=== PATIENT | female | born 1965 | race Two or more races ===

== ENCOUNTER → 2020-07-13 11:35 | Outpatient (BNVA) | payer OTHER, SELFPAY | PROVIDERS: PCP Internal Medicine; Visit Provider Nurse Practitioner | DX: Z13.89 Encounter for screening for other disorder (principal) | CPT/HCPCS: 99212 ==

== ENCOUNTER 2020-08-04 08:25 | Outpatient (REF) | payer OTHER, SELFPAY ==
[2020-08-04 09:08] LABS: FIT Int Ctl YES; FIT1 NEGATIVE (NEGATIVE); FIT2 NEGATIVE (NEGATIVE)
== END 2020-08-04 08:26 | disposition home or self-care (01) ==
LOC: HO.LNP 08:25
PROVIDERS: Visit Provider Nurse Practitioner
DX: Z12.11 Encounter for screening for malignant neoplasm of colon (principal)
CPT/HCPCS: 82274

== ENCOUNTER → 2020-10-22 09:57 | Outpatient (BNVA) | payer OTHER, SELFPAY | PROVIDERS: PCP Internal Medicine; Visit Provider Internal Medicine | DX: I10 Essential (primary) hypertension (principal) | CPT/HCPCS: 93005; 99212 ==

== ENCOUNTER 2020-12-08 21:35 | Emergency (ER) | payer OTHER, SELFPAY ==
--- NOTE | ~2020-12-08 | US_ITS ---
EXAMINATION: US VENOUS ULTRASOUND WITH DOPPLER LOWER EXTREMITY, LEFT CLINICAL INFORMATION: Swelling erythema pain COMPARISON: Prior venous ultrasound September 2018 TECHNIQUE: Ultrasound of the deep veins is performed from the hip to the calf with compression sonography and color and pulse Doppler assessment. Spectral analysis with color-flow imaging is performed. FINDINGS: There is normal venous compression and respiratory variation and augmented flow. The visualized common femoral vein, superficial femoral vein, profunda femoral vein, popliteal vein, and the trifurcation region shows no evidence of deep venous thrombosis. There is no significant popliteal fossa cyst. If the patient's symptoms persist, followup ultrasound in 5 days 7 days might be of value to exclude proximal propagation from a non-visualized calf vein. US/US venous duplex LE IMPRESSION: No DVT demonstrated in the left lower extremity.
--- NOTE | ~2020-12-08 | XR_ITS ---
EXAMINATION: XR ANKLE, LEFT CLINICAL INFORMATION: Swelling pain COMPARISON: None TECHNIQUE: AP, lateral, and mortise views of the left ankle. FINDINGS: There is mild generalized soft tissue prominence compatible with swelling about the ankle. I do not see a fracture or degenerative joint disease. Calcaneal spurs noted. XR/XR ankle LT min 3V IMPRESSION: Possible soft tissue swelling versus normal variation. No acute bone or joint abnormality.
[2020-12-08 21:38] VITALS: BP 130/79; PULSE 70; RESP 18; TEMP 37.1; O2SAT 99; BMI 27.8
--- NOTE | 2020-12-08 22:16 | ED.LOWEXIN ---
HPI - Extremity Injury (Lower) General Chief Complaint: Extremity Injury, Lower Stated Complaint: vein swelling Time Seen by Provider: 12/09/20 00:23 Source: patient Mode of arrival: ambulatory Limitations: language barrier History of Present Illness HPI Narrative: 55-year-old female past medical history of B12 deficiency, hypertension, and seasonal allergies presents with 2 days of left lower extremity pain, swelling and redness. The pain started 2 days ago and then the swelling started earlier today, making it difficult for her to ambulate. She states the pain started in the mid calf, at the site where she had a prior venous surgery. She does not take any hormones, does not smoke, has never been diagnosed with cancer, and does not have any recent flights or prolonged episodes of bed rest. She does not report any fevers, chills, chest pain or pressure, palpitations, shortness of breath, shortness of breath on exertion, chest pain on inspiration, abdominal pain, abdominal distention, dysuria, hematuria, or any other concerning symptoms. She denies trauma, falls, or any other source of injury. Onset (ago): day(s) (To) Type of Injury: unknown Severity: moderate Severity scale (1-10): 6 Relieving factors: nothing Exacerbating factors: weight bearing, movement and palpation Associated symptoms: swelling and able to partially bear weight Related Data Home Medications Medication Instructions Recorded Confirmed cetirizine 10 mg tablet 10 mg PO DAILY 07/29/20 11/26/20 lisinopril 10 1 tab PO DAILY 10/22/20 11/26/20 mg-hydrochlorothiazide 12.5 mg tablet Previous Rx's Medication Instructions Recorded cyanocobalamin (vitamin B-12) 1,000 mcg PO DAILY #30 tab 06/03/20 1,000 mcg tablet amlodipine 5 mg tablet 5 mg PO DAILY #90 tab 09/02/20 doxycycline monohydrate 100 mg PO BID 10 Days #20 tab 12/09/20 Allergies Allergy/AdvReac Type Severity Reaction Status Date / Time No Known Allergies Allergy Verified 12/08/20 21:38 Review of Systems Review of Systems: Constitutional: No Fever, No Chills ENT/Mouth: No Ear Pain, No Hoarseness, No sore throat Eyes: No Eye Pain, No Swelling, No Redness, No Foreign Body Cardiovascular: No Chest Pain, No SOB Respiratory: No Cough, No Dyspnea Gastrointestinal: No Nausea, No Vomiting, No Diarrhea, No abdominal Pain Genitourinary: No Dysuria, No Hematuria Musculoskeletal: positive left ankle and calf pain swelling and erythema, No Myalgias Skin: No Skin lacerations, No rash Neuro: No Weakness, No Numbness, No Paresthesias, No Loss of Consciousness, No Dizziness, No Headache Psych: No Anxiety/Panic, No Depression Heme/Lymph: no easy bruising, no Lymphadenopathy Endocrine: No Polyuria, No Polydipsia Yes all other systems are reviewed and are negative [facility] Past Medical History Attestation statement: The following information was validated with the patient. Source: old records reviewed Medical History B12 deficiency Essential hypertension Surgical History History of section History of cholecystectomy History of lipoma History of shoulder surgery Family History Family History Father Lung cancer Mother Stroke Maternal Grandmother Stroke CVD (cardiovascular disease) Maternal Grandfather CVD (cardiovascular disease) Stroke Maternal Uncle Myocardial infarction Social History Social History Alcohol intake: current Alcohol intake frequency: does not drink Smoking Status: Never smoker Advance Directives: No Advance Directives Information Provided: No Patient : No Physical Exam Vital Signs: Vital Signs: Last Vital Signs Temp 98.7 F 12/08/20 21:38 Pulse 70 12/08/20 21:38 Resp 18 12/08/20 21:38 BP 130/79 12/08/20 21:38 Pulse Ox 99 12/08/20 21:38 Body Mass Index 27.8 Appearance: Alert. Oriented X3. No acute distress. Eyes: Pupils equal, round and reactive to light. ENT: Pharynx normal. Neck: Normal inspection. Neck supple. CVS: Normal heart rate and rhythm. Pulses normal. Respiratory: No respiratory distress. Breath sounds normal. Abdomen: Soft and nontender. Skin: Skin warm and dry. Normal skin color. Normal skin turgor. Extremities: Left lateral malleolar erythema and swelling, calf pain to minimal palpation with warmth and erythema. Full range of motion to the ankle, able to flex extend internal and externally rotate. Ambulatory. Neuro: No motor deficit. No sensory deficit. Course Course Course Narrative: 55-year-old female presents with 2 days of lower extremity pain and swelling. Pain started in the mid calf and then radiated down to her lateral ankle. Will rule out DVT with duplex and order an x-ray with CBC, Chem 7 and PT INR. Negative for DVT, ankle x-rays are negative for acute findings or fracture. Plan of care is to treat for cellulitis with doxycycline. Patient verbalized understanding of and agrees to plan care discharge home. Google translate utilized for discharge instructions, medicinal chemist utilized for all correspondence. MDM - Extremity Injury (Lower) MDM Narrative Medical decision making narrative: DVT, cellulitis Differential Diagnosis Differential diagnosis: Likely ankle sprain and strain Medical Records Attestation: I reviewed the patient's medical records. Lab Data Attestation: I reviewed the patient's lab results. Result diagrams: 12/08/20 22:24 12/08/20 22:24 Labs: Lab Results 12/08/20 12/08/20 12/08/20 Range/Units 22:24 22:24 22:24 WBC 8.1 (4.8-10.8) X10*3/uL RBC 4.46 (4.20-5.50) X10*6/uL Hgb 13.1 (12.0-16.0) g/dl Hct 39.9 (37-47) % MCV 89.5 (80-98) fL MCH 29.4 (27.0-33.0) pg MCHC 32.8 (31.0-35.0) g/dl RDW 13.2 (11.0-16.0) % Plt Count 355 (160-400) X10*3/uL MPV 10.9 (9.4-12.3) fL Immature Gran % (Auto) 0.4 (0.0-0.4) % Neut % (Auto) 48.8 (45-73) % Lymph % (Auto) 33.3 (20-40) % [place] % (Auto) 14.2 H (2-11) % Eos % (Auto) 2.3 (0-4) % Baso % (Auto) 1.0 (0-2) % Lymph # (Auto) 2.7 (1.2-4.9) X10*3/uL [place] # (Auto) 1.2 (0.1-1.2) X10*3/uL Eos # (Auto) 0.2 (0.0-0.4) X10*3/uL Baso # (Auto) 0.1 (0.0-0.2) X10*3/uL Abs Immat Gran (auto) 0.03 (0.00-0.03) X10*3/uL Absolute Neuts (auto) 4.0 (2.0-8.3) X10*3/uL Absolute Nucleated RBC 0.000 (0.0-0.012) X10*3/uL Nucleated RBC % (auto) 0.0 (0.0-0.2) /100WBC PT 13.3 H (10.8-13.0) SEC INR 1.1 (0.9-1.1) APTT 40.8 H (24.1-38.0) SEC Sodium 141 (135-145) mmol/L Potassium 3.7 (3.3-5.1) mmol/L Chloride 105 (96-108) mmol/L Carbon Dioxide 28 (22-29) mmol/L Anion Gap 12 (12-20) BUN 16 (9-16) mg/dL Creatinine 1.02 (0.5-1.4) mg/dL Estim Creat Clear Calc 53.1 Estimated GFR 56 Random Glucose 71 (60-115) mg/dL Calcium 9.5 (8.4-10.2) mg/dL Imaging Data Ankle x-ray: Attestation: I personally reviewed and interpreted this imaging study as follows: Radiologist's impression: EXAMINATION: XR ANKLE, LEFT CLINICAL INFORMATION: Swelling pain COMPARISON: None TECHNIQUE: AP, lateral, and mortise views of the left ankle. FINDINGS: There is mild generalized soft tissue prominence compatible with swelling about the ankle. I do not see a fracture or degenerative joint disease. Calcaneal spurs noted. XR/XR ankle LT min 3V IMPRESSION: Possible soft tissue swelling versus normal variation. No acute bone or joint abnormality. Lower extremity venous duplex: Attestation: I personally reviewed and interpreted this imaging study as follows: Radiologist's impression: EXAMINATION: US VENOUS ULTRASOUND WITH DOPPLER LOWER EXTREMITY, LEFT CLINICAL INFORMATION: Swelling erythema pain COMPARISON: Prior venous ultrasound September 2018 TECHNIQUE: Ultrasound of the deep veins is performed from the hip to the calf with compression sonography and color and pulse Doppler assessment. Spectral analysis with color-flow imaging is performed. FINDINGS: There is normal venous compression and respiratory variation and augmented flow. The visualized common femoral vein, superficial femoral vein, profunda femoral vein, popliteal vein, and the trifurcation region shows no evidence of deep venous thrombosis. There is no significant popliteal fossa cyst. If the patient's symptoms persist, followup ultrasound in 5 days 7 days might be of value to exclude proximal propagation from a non-visualized calf vein. US/US venous duplex LE LT IMPRESSION: No DVT demonstrated in the left lower extremity. Discharge Plan Discharge Clinical Impression: Cellulitis Qualifiers: Site of cellulitis: extremity Site of cellulitis of extremity: lower extremity Laterality: left Qualified Code(s): L03.116 - Cellulitis of left lower limb Patient Disposition: Home, Self-Care Instructions: Cellulitis (ED) Additional Instructions: Te evaluaron para el dolor e hinchaz?n del tobillo ricardo y las extremidades inferiores. El estudio de TVP es negativo, las radiograf?as son negativas para las fracturas. Te estamos tratando por celulitis. Por favor, tome doxiciclina dos veces al d?a lara los pr?ximos 10 d?as. Utilice Tylenol Motrin seg?n sea necesario para el control del dolor. Por favor, svetlana un seguimiento con el proveedor de atenci?n primaria esta semana. Alma por elegir sol departamento de emergencias para ramirez evaluaci?n. Por favor, svetlana un seguimiento con el m?dico de atenci?n primaria seg?n sea necesario. Regrese al servicio de emergencias para cualquier s?ntoma nuevo, preocupante o empeorante. You were evaluated for left ankle and lower extremity pain and swelling. DVT study is negative, x-rays are negative for fractures. We are treating you for cellulitis. Please take doxycycline twice a day for the next 10 days. Use Tylenol Motrin as needed for pain management. Please follow-up with the primary care provider this week. Thank you for choosing this emergency department for evaluation. Please follow-up with primary care physician as needed. Return to the emergency department for any new, concerning, or worsening symptoms. Prescriptions: New doxycycline monohydrate 100 mg tablet 100 mg PO BID 10 Days Qty: 20 RF: 0 No Action cyanocobalamin (vitamin B-12) 1,000 mcg tablet 1,000 mcg PO DAILY Qty: 30 RF: 6 amlodipine 5 mg tablet 5 mg PO DAILY Qty: 90 RF: 0 cetirizine 10 mg tablet 10 mg PO DAILY RF: 0 lisinopril-hydrochlorothiazide 10-12.5 mg tablet 1 tab PO DAILY RF: 0 Stand Alone Forms: Work/School Release Interventions: ED Discharge Assessment Last Done: 12/09/20 00:44 Discharge Date/Time: 12/09/20 00:45
[2020-12-08 22:29] LABS: MANUAL DIFF FLAG NO
[2020-12-08 22:30] LABS: Basophils Absolute Auto 0.1 X10*3/uL (0.0-0.2); Eosinophils Absolute Auto 0.2 X10*3/uL (0.0-0.4); Eosinophils Percent Auto 2.3 % (0-4); Hematocrit 39.9 % (37-47); Hemoglobin 13.1 g/dl (12.0-16.0); Imm Gran Abs Auto 0.03 X10*3/uL (0.00-0.03); Imm Gran Pct Auto 0.4 % (0.0-0.4); Lymphocytes Absolute Auto 2.7 X10*3/uL (1.2-4.9); Lymphocytes Percent Auto 33.3 % (20-40); Mean Corpuscular HGB Conc 32.8 g/dl (31.0-35.0); Mean Corpuscular Hemoglobin 29.4 pg (27.0-33.0); Mean Corpuscular Volume 89.5 fL (80-98); Mean Platelet Volume 10.9 fL (9.4-12.3); Monocytes Absolute Auto 1.2 X10*3/uL (0.1-1.2); Monocytes Percent Auto 14.2 % (2-11); Neutrophils Percent Auto 48.8 % (45-73); Platelet Count 355 X10*3/uL (160-400); Red Blood Count 4.46 X10*6/uL (4.20-5.50); Red Cell Distribution Width 13.2 % (11.0-16.0); White Blood Count 8.1 X10*3/uL (4.8-10.8)
[2020-12-08 22:37] LABS: INTERNATIONAL NORM RATIO 1.1 (0.9-1.1); Prothrombin Time 13.3 SEC (10.8-13.0)
[2020-12-08 22:41] LABS: Partial Thromboplastin Time 40.8 SEC (24.1-38.0)
[2020-12-08 23:02] LABS: Anion Gap 12 (12-20); Blood Urea Nitrogen 16 mg/dL (9-16); Calcium 9.5 mg/dL (8.4-10.2); Carbon Dioxide 28 mmol/L (22-29); Chloride 105 mmol/L (96-108); Creatinine Clr Calc Pharmacy 53.1; Estimated Glomerular Filt Rate 56; Glucose Random 71 mg/dL (60-115); Potassium 3.7 mmol/L (3.3-5.1); Sodium 141 mmol/L (135-145)
[2020-12-09] MEDS: Ibuprofen 600 MG TABLET PO (00:40)
== END 2020-12-09 00:45 | disposition home or self-care (01) ==
PROVIDERS: Nurse Practitioner Family; Emergency Provider Emergency Medicine; PCP Internal Medicine
DX: L03.116 Cellulitis of left lower limb (principal); R22.42 Localized swelling, mass and lump, left lower limb; M79.662 Pain in left lower leg; I10 Essential (primary) hypertension; E53.8 Deficiency of other specified B group vitamins; Z79.899 Other long term (current) drug therapy
CPT/HCPCS: 36415; 73610; 80048; 85025; 85610; 85730; 93971; 99283; 99284

== ENCOUNTER 2021-06-23 08:52 | Emergency (ER) | payer OTHER, SELFPAY ==
[2021-06-23 09:28] VITALS: BP 148/84; BP 161/88; PULSE 84; PULSE 86; RESP 18; TEMP 36.7; O2SAT 100; BMI 25.7
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
[2021-06-23] MEDS: oxyCODONE HCl Immed Release 5 MG TABLET PO (09:39)
[2021-06-23] MEDS: Ibuprofen 800 MG TABLET PO (09:39)
[2021-06-23] MEDS: Silver Sulfadiazine 1 % Cream 20 GM TUBE 1 APPL TOPICAL (09:39)
== END 2021-06-23 10:13 | disposition home or self-care (01) ==
PROVIDERS: Emergency Provider Emergency Medicine; PCP Internal Medicine
DX: T22.112A Burn of first degree of left forearm, initial encounter (principal); T22.212A Burn of second degree of left forearm, initial encounter; T22.312A Burn of third degree of left forearm, initial encounter; T31.0 Burns involving less than 10% of body surface; M79.632 Pain in left forearm; X10.2XXA Contact with fats and cooking oils, initial encounter; Y93.G3 Activity, cooking and baking; Y92.009 Unspecified place in unspecified non-institutional (private) residence as the place of occurrence of the external cause; Y99.9 Unspecified external cause status; Z79.899 Other long term (current) drug therapy
CPT/HCPCS: 16020; 99283

== ENCOUNTER 2021-07-01 07:59 | Outpatient (RCR) | payer OTHER, SELFPAY | END 2021-07-28 12:29 | disposition home or self-care (01) | LOC: HO.WCC 07:59 | PROVIDERS: PCP Internal Medicine; Visit Provider Surgery | DX: T23.262D Burn of second degree of back of left hand, subsequent encounter (principal); T22.212D Burn of second degree of left forearm, subsequent encounter; T31.0 Burns involving less than 10% of body surface; X10.2XXD Contact with fats and cooking oils, subsequent encounter; I10 Essential (primary) hypertension | CPT/HCPCS: 99212; 99213 ==

== ENCOUNTER → 2021-07-14 12:01 | Outpatient (BNVA) | payer OTHER, SELFPAY | PROVIDERS: Visit Provider Orthopaedic Surgery | DX: T23.072A Burn of unspecified degree of left wrist, initial encounter (principal); T23.002A Burn of unspecified degree of left hand, unspecified site, initial encounter | CPT/HCPCS: 99202 ==

== ENCOUNTER → 2021-09-21 09:57 | Outpatient (BNVA) | payer OTHER, SELFPAY | PROVIDERS: Visit Provider Orthopaedic Surgery | DX: T23.072D Burn of unspecified degree of left wrist, subsequent encounter (principal); M25.642 Stiffness of left hand, not elsewhere classified; T78.40XA Allergy, unspecified, initial encounter | CPT/HCPCS: 99212 ==

== ENCOUNTER 2021-10-25 10:01 | Outpatient (REF) | payer OTHER, SELFPAY ==
[2021-10-25 10:20] LABS: MANUAL DIFF FLAG NO
[2021-10-25 10:40] LABS: Basophils Absolute Auto 0.1 X10*3/uL (0.0-0.2); Basophils Percent Auto 0.9 % (0-2); Eosinophils Absolute Auto 0.2 X10*3/uL (0.0-0.4); Eosinophils Percent Auto 3.2 % (0-4); Hematocrit 42.6 % (37.0-47.0); Hemoglobin 13.5 g/dl (12.0-16.0); Imm Gran Abs Auto 0.03 X10*3/uL (0.00-0.03); Imm Gran Pct Auto 0.5 % (0.0-0.4); Lymphocytes Absolute Auto 2.3 X10*3/uL (1.2-4.9); Lymphocytes Percent Auto 35.3 % (20-40); Mean Corpuscular HGB Conc 31.7 g/dl (31.0-35.0); Mean Corpuscular Hemoglobin 28.2 pg (27.0-33.0); Mean Corpuscular Volume 89.1 fL (80.0-98.0); Mean Platelet Volume 11.1 fL (9.4-12.3); Monocytes Absolute Auto 0.5 X10*3/uL (0.1-1.2); Monocytes Percent Auto 7.3 % (2-11); Neutrophils Absolute Auto 3.5 x10*3/uL (2.0-8.3); Neutrophils Percent Auto 52.8 % (45-73); Platelet Count 371 X10*3/uL (160-400); Red Blood Count 4.78 X10*6/uL (4.20-5.50); Red Cell Distribution Width 13.4 % (11.0-16.0); White Blood Count 6.6 X10*3/uL (4.8-10.8)
[2021-10-25 11:12] LABS: Alanine Aminotransferase 21 U/L (0-31); Albumin Level 4.2 g/dL (3.5-5.0); Alkaline Phosphatase 78 U/L (39-117); Anion Gap 12 (12-20); Aspartate Amino Transferase 22 U/L (5-31); Bilirubin Total 0.5 mg/dL (0.0-1.0); Blood Urea Nitrogen 15 mg/dL (9-16); Calcium 9.8 mg/dL (8.4-10.2); Carbon Dioxide 29 mmol/L (22-29); Chloride 105 mmol/L (96-108); Cholesterol 213 mg/dL; Estimated Glomerular Filt Rate > 60; Glucose Random 85 mg/dL (60-115); HDL Cholesterol 36 mg/dL; LDL Cholesterol Calculated 152 mg/dl; Potassium 4.5 mmol/L (3.3-5.1); Sodium 141 mmol/L (135-145); Total Protein 7.6 g/dL (6.5-8.0); Triglycerides 125 mg/dL
[2021-10-25 12:21] LABS: Folate 8.6 ng/mL (> or = 4.0); Vitamin B12 312 pg/mL (200-900)
[2021-10-30 00:41] LABS: Parietal Cell Antibody 56.3 Unit (<=20.0)
[2021-10-30 12:52] LABS: Vitamin D 25-OH, D2 <4 ng/mL; Vitamin D 25-OH, D3 15 ng/mL; Vitamin D 25-OH, Total 15 ng/mL (30-100)
[2021-10-30 22:06] LABS: Intrinsic Factor Antibodies Negative (Negative)
== END 2021-10-25 10:02 | disposition home or self-care (01) ==
LOC: HO.LAB 10:01
PROVIDERS: PCP Internal Medicine; Visit Provider Internal Medicine
DX: D64.9 Anemia, unspecified (principal); E53.8 Deficiency of other specified B group vitamins; I10 Essential (primary) hypertension; E78.5 Hyperlipidemia, unspecified; E55.9 Vitamin D deficiency, unspecified
CPT/HCPCS: 36415; 80053; 80061; 82306; 82607; 82746; 83516; 85025; 86340

== ENCOUNTER 2021-11-11 11:00 | Outpatient (RCR) | payer OTHER, SELFPAY ==
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
== END 2021-11-18 11:44 | disposition home or self-care (01) ==
LOC: HO.OT 11:00
PROVIDERS: PCP Internal Medicine; Visit Provider Orthopaedic Surgery
DX: M25.642 Stiffness of left hand, not elsewhere classified (principal); T78.40XA Allergy, unspecified, initial encounter; T23.072A Burn of unspecified degree of left wrist, initial encounter; T23.002A Burn of unspecified degree of left hand, unspecified site, initial encounter
CPT/HCPCS: 97110; 97140; 97166

== ENCOUNTER 2021-12-23 08:57 | Outpatient (REF) | payer OTHER, SELFPAY ==
--- NOTE | ~2021-12-23 | MM_ITS ---
EXAMINATION: MM SCREENING DIGITAL BREAST TOMOSYNTHESIS, BILATERAL CLINICAL INFORMATION: Screening. Asymptomatic. The lifetime risk of breast cancer based on the Tyrer-Cuzick Model is 6.3%. COMPARISON: Mammography: August 21, 2019 and studies dating back to August 31, 2010 TECHNIQUE: Digital breast tomosynthesis is performed in both the craniocaudal and mediolateral oblique views along with computer-aided detection (CAD). Synthesized 2D images are generated from the tomosynthesis. FINDINGS: There are scattered areas of fibroglandular density (ACR BI-RADS breast composition Category b). There are no significant masses, abnormal calcifications, or other abnormalities. MM/MM tomosynthesis screening BI IMPRESSION: There are no significant changes from prior study. ASSESSMENT: BI-RADS 1: Negative RECOMMENDATION: Routine annual mammography screening. This patient's information was entered into a reminder system with a target due date for their next mammogram.
--- NOTE | ~2021-12-23 | MM_ITS ---
EXAMINATION: BONE DENSITOMETRY CLINICAL INDICATION: Menopause. COMPARISON: None (current study represents initial baseline exam). TECHNIQUE: Using a [employer] DXA System (software version: 13.1) manufactured by [employer], dual-energy x-ray absorptiometry was performed of the lumbar spine and left hip. The images are of good technical quality. Summary results are attached. FINDINGS: AP SPINE L1-L4: BMD 1.130 g/cm2, Z-score 0.6, T-score -0.4, normal. LEFT FEMUR, NECK: BMD 0.806 g/cm2, Z-score -0.6, T-score -1.7, osteopenia. LEFT FEMUR, TOTAL: BMD 1.020 g/cm2, Z-score 0.9, T-score 0.1, normal. IDENTIFIED RISK FACTORS: Menopause. HISTORY OF FRACTURE: None listed. MEDICATIONS: None listed. MM/XR DEXA axial skeleton IMPRESSION: 1. DIAGNOSIS: Osteopenia based on the lowest T-score value of -1.7 in the femoral neck applying World Health Organization criteria. 2. 10-YEAR FRACTURE RISK PREDICTION, FRAX: Major osteoporotic fracture (clinical spine, forearm, hip or shoulder) 4.3%. Hip fracture 0.4%. 3. Treatment Recommendations: NOF guidelines recommend consideration for treatment in postmenopausal women and men age 50 and older presenting with the following: -A hip or vertebral (clinical or morphometric) fracture. -T-score less than or equal to -2.5 at the femoral neck or spine after appropriate evaluation to exclude secondary causes. -Low bone mass at the hip or spine and a 10-year fracture probability by FRAX of greater than or equal to 3% for hip fracture or greater than or equal to 20% for major osteoporotic fracture based on the [place] adapted WHO algorithm. 4. Other Recommendations: All treatment decisions require clinical judgment and consideration of individual patient factors, including patient preferences, comorbidities, previous drug use, risk factors not captured in the FRAX model (e.g. frailty, falls, vitamin D deficiency, increased bone turnover, interval significant decline in bone density) and possible under or overestimation of fracture risk by FRAX. Additional medical evaluation for secondary cause of low bone mineral density may be appropriate. FUTURE SCAN RECOMMENDATION: People with diagnosed cases of osteoporosis or at high risk for fracture should have regular bone mineral density tests. For patients eligible for Medicare, routine testing is allowed once every 2 years. The testing frequency can be increased to one year for patients who have rapidly progressing disease, those who are receiving or discontinuing medical therapy to restore bone mass, or have additional risk factors.
== END 2021-12-23 08:58 | disposition home or self-care (01) ==
LOC: HO.MAMMO 08:57
PROVIDERS: PCP Internal Medicine; Visit Provider Internal Medicine
DX: Z12.31 Encounter for screening mammogram for malignant neoplasm of breast (principal); Z13.820 Encounter for screening for osteoporosis; Z78.0 Asymptomatic menopausal state; M85.80 Other specified disorders of bone density and structure, unspecified site
CPT/HCPCS: 77063; 77067; 77080

== ENCOUNTER 2022-08-13 19:17 | Emergency (ER) | payer OTHER, SELFPAY ==
--- NOTE | ~2022-08-13 | XR_ITS ---
EXAMINATION: XR CHEST CLINICAL INFORMATION: Shortness of breath, chest pain. COMPARISON: Chest radiograph done on 05/10/2019. TECHNIQUE: 2 views of the chest were obtained. FINDINGS: No significant abnormality is noted involving the heart, lungs, mediastinum, bony thorax or soft tissues. XR/XR chest 2V IMPRESSION: Unremarkable examination.
--- NOTE | 2022-08-13 20:06 | ED.GENADULT ---
HPI - General Adult General Chief complaint: Arrhythmia/Palpitations <Vanda Adrian CNP - Last Filed: 08/13/22 20:13> Stated complaint: high blood pressure <Vanda Adrian CNP - Last Filed: 08/13/22 20:13> Time Seen by Provider: 08/13/22 22:26 <Vanda Adrian CNP - Last Filed: 08/13/22 20:13> Source: patient and family <Olvin Cuevas MD - Last Filed: 08/14/22 00:23> Mode of arrival: ambulatory <Olvin Cuevas MD - Last Filed: 08/14/22 00:23> Limitations: no limitations <Olvin Cuevas MD - Last Filed: 08/14/22 00:23> History of Present Illness HPI narrative: Patient with history of hypertension heard the news of her uncle been sick early today since then having increased stress and checked her blood pressure was 155/105 patient denied any chest pain no palpitation felt had heavy short of breath anxious on arrival patient's blood pressure increased to 169/97 <Olvin Cuevsa MD - Last Filed: 08/14/22 00:23> Related Data Home medications: Home Medications Medication Instructions Recorded Confirmed cetirizine 10 mg tablet 10 mg PO DAILY 07/29/20 10/28/21 lisinopril 10 1 tab PO DAILY 10/22/20 10/28/21 mg-hydrochlorothiazide 12.5 mg tablet Previous Rx's Medication Instructions Recorded amlodipine 5 mg tablet 5 mg PO DAILY #90 tabs 04/05/21 ibuprofen 800 mg tablet 800 mg PO Q8H PRN pain #14 tabs 06/23/21 silver sulfadiazine 1 % topical 1 appl topical DAILY PRN walker 06/23/21 cream #400 grams cyanocobalamin (vitamin B-12) 1,000 mcg PO DAILY #30 tabs 09/06/21 1,000 mcg tablet atorvastatin 20 mg tablet 20 mg PO BEDTIME 90 days #90 tabs 10/28/21 cholecalciferol (vitamin D3) 50 50 mcg PO DAILY 90 days #90 caps 10/31/21 mcg (2,000 unit) capsule lorazepam 0.5 mg tablet (Ativan) 0.5 mg PO BEDTIME PRN anxiety #14 08/13/22 tabs <Vanda Adrian CNP - Last Filed: 08/13/22 20:13> Allergies/adverse reactions: Allergies Allergy/AdvReac Type Severity Reaction Status Date / Time No Known Allergies Allergy Verified 08/13/22 20:13 <Vanda Adrian CNP - Last Filed: 08/13/22 20:13> Review of Systems Review of Systems: Yes all other systems are reviewed and are negative <Olvin Cuevas MD - Last Filed: 08/14/22 00:23> [facility] Past Medical History Medical History: Medical History B12 deficiency Essential hypertension Hypovitaminosis D Physical exam Postmenopausal Pure hypercholesterolemia <Vanda Adrian CNP - Last Filed: 08/13/22 20:13> Surgical History: Surgical History History of section History of cholecystectomy History of lipoma History of shoulder surgery <Vanda Adrian CNP - Last Filed: 08/13/22 20:13> Family History Family History: Family History Father Lung cancer Mother Stroke Maternal Grandmother Stroke CVD (cardiovascular disease) Maternal Grandfather CVD (cardiovascular disease) Stroke Maternal Uncle Myocardial infarction <Vanda Adrian CNP - Last Filed: 08/13/22 20:13> Social History Social History: Social History Housing: Apartment Alcohol intake: never Patient Tobacco Use Status: Never used Tobacco Smoked in Last 30 Days: No e-Cigarette/Vaping Use: Never Used Second Hand Smoke Exposure: No Use of substances other than those prescribed or required for medical reasons: No Advance Directives: No Advance Directives Information Provided: Yes Patient : No service: No Current occupational status: employed Current occupation: [employer] Cognitive needs: No Hearing needs: No Vision needs: No <Vanda Adrian CNP - Last Filed: 08/13/22 20:13> Physical Exam ED Vital Signs: Vital Signs - 24 hr 08/13/22 20:13 08/13/22 22:12 08/13/22 23:19 Temperature 97.9 F 97.6 F Pulse Rate 82 68 71 Respiratory Rate 18 14 Blood Pressure 171/97 H 164/93 H 138/78 Pulse Oximetry 99 99 Oxygen Delivery Method Room Air Room Air 08/13/22 23:51 Temperature Pulse Rate 76 Respiratory Rate 12 Blood Pressure 130/83 Pulse Oximetry 97 Oxygen Delivery Method Room Air BMI result Body Mass Index 28.3 <Vanda Adrian CNP - Last Filed: 08/13/22 20:13> Vital Signs - 24 hr 08/13/22 20:13 08/13/22 22:12 08/13/22 23:19 Temperature 97.9 F 97.6 F Pulse Rate 82 68 71 Respiratory Rate 18 14 Blood Pressure 171/97 H 164/93 H 138/78 Pulse Oximetry 99 99 Oxygen Delivery Method Room Air Room Air 08/13/22 23:51 Temperature Pulse Rate 76 Respiratory Rate 12 Blood Pressure 130/83 Pulse Oximetry 97 Oxygen Delivery Method Room Air BMI result Body Mass Index 28.3 <Olvin Cuevas MD - Last Filed: 08/14/22 00:23> Appearance: Alert. Oriented X3. No acute distress. Anxious Eyes: PERRLA, No Nystagmus ENT: Pharynx normal. Oral Mucosa moist Neck: Normal inspection. Neck supple. CVS: Normal heart rate and rhythm. Pulses normal. Respiratory: No respiratory distress. Equal air entry bilateral, no wheezing/rales/rhonchi Abdomen: Soft and nontender. Bowel sounds are present, no mass palpable, no CVA tenderness Skin: Skin warm and dry. Normal skin color. Normal skin turgor. Extremities: No lower extremity edema. No calf tenderness Neuro: Oriented X 3. No motor deficit. No sensory deficit.No cerebellar signs , cranial nerves II-XII intact <Olvin Cuevas MD - Last Filed: 08/14/22 00:23> Course Course Course Narrative: This is an RME: Additional HPI, ROS, PE not included below will be deferred to primary provider. Patient is a 56-year-old female who presents emergency department with her niece. Patient was experiencing palpitations that she could feel in her throat, chest pain, headache, short of breath, bilateral eyes are red without drainage. States right eye feels numb/ heaviness of the eyelid, with vision change. Has elevated blood pressure tonight at home 155/105, currently taking Amlodipine daily. Plan: EKG, labs, CXR, viral testing <Vanda Adrian CNP - Last Filed: 08/13/22 20:13> Medications Administered Discontinued Medications Generic Name Dose Route Start Last Admin Trade Name Freq PRN Reason Stop Dose Admin Lorazepam 1 mg 08/13/22 22:40 08/13/22 22:46 Lorazepam 1 Mg Tablet PO 08/13/22 22:41 1 mg ONCE ONE Administration Ondansetron HCl 4 mg 08/13/22 22:54 08/13/22 23:20 Ondansetron Odt 4 Mg Tab.Rapdis TRANSLINGU 08/13/22 22:55 4 mg ONCE ONE Administration <Vanda Adrian CNP - Last Filed: 08/13/22 20:13> Medications Administered Discontinued Medications Generic Name Dose Route Start Last Admin Trade Name Freq PRN Reason Stop Dose Admin Lorazepam 1 mg 08/13/22 22:40 08/13/22 22:46 Lorazepam 1 Mg Tablet PO 08/13/22 22:41 1 mg ONCE ONE Administration Ondansetron HCl 4 mg 08/13/22 22:54 08/13/22 23:20 Ondansetron Odt 4 Mg Tab.Rapdis TRANSLINGU 08/13/22 22:55 4 mg ONCE ONE Administration <Olvin Cuevas MD - Last Filed: 08/14/22 00:23> Medical Decision Making Medical Decision Making MDM Narrative: Patient increased anxiety with transient elevated blood pressure vomited in the ER got better after Ativan at this time patient's blood pressure is 130/83 will discharge patient home on Ativan <Olvin Cuevas MD - Last Filed: 08/14/22 00:23> Lab Data [facility] Lab Attestation statement: I reviewed the patient's lab results. <Olvin Cuevas MD - Last Filed: 08/14/22 00:23> Result Diagrams: 08/13/22 20:35 08/13/22 20:35 <aVnda Adrian CNP - Last Filed: 08/13/22 20:13> Labs: Lab Results 08/13/22 08/13/22 08/13/22 Range/Units 20:35 20:35 20:35 WBC 10.2 (4.8-10.8) X10*3/uL RBC 5.09 (4.20-5.50) X10*6/uL Hgb 14.7 (12.0-16.0) g/dl Hct 44.0 (37.0-47.0) % MCV 86.4 (80.0-98.0) fL MCH 28.9 (27.0-33.0) pg MCHC 33.4 (31.0-35.0) g/dl RDW 13.2 (11.0-16.0) % Plt Count 356 (160-400) X10*3/uL MPV 10.8 (9.4-12.3) fL Immature Gran % (Auto) 0.7 H (0.0-0.4) % Neut % (Auto) 78.5 H (45-73) % Lymph % (Auto) 14.8 L (20-40) % [place] % (Auto) 5.1 (2-11) % Eos % (Auto) 0.1 (0-4) % Baso % (Auto) 0.8 (0-2) % Lymph # (Auto) 1.5 (1.2-4.9) X10*3/uL [place] # (Auto) 0.5 (0.1-1.2) X10*3/uL Eos # (Auto) 0.0 (0.0-0.4) X10*3/uL Baso # (Auto) 0.1 (0.0-0.2) X10*3/uL Abs Immat Gran (auto) 0.07 H (0.00-0.03) X10*3/uL Absolute Neuts (auto) 8.0 (2.0-8.3) x10*3/uL Absolute Nucleated RBC 0.000 (0.0-0.012) X10*3/uL Nucleated RBC % (auto) 0.0 (0.0-0.2) /100WBC Sodium 141 (135-145) mmol/L Potassium 4.5 (3.3-5.1) mmol/L Chloride 104 (96-108) mmol/L Carbon Dioxide 27 (22-29) mmol/L Anion Gap 15 (12-20) BUN 13 (9-16) mg/dL Creatinine 0.99 (0.5-1.4) mg/dL Estim Creat Clear Calc 52.4 Estimated GFR 58 Random Glucose 118 H (60-115) mg/dL Calcium 10.6 H D (8.4-10.2) mg/dL Total Bilirubin 0.3 (0.0-1.0) mg/dL AST 28 (5-31) U/L ALT 28 (0-31) U/L Alkaline Phosphatase 89 (39-117) U/L Troponin I High Sens 5.4 (<3.5-17.0) ng/L B-Natriuretic Peptide (<100) pg/mL Total Protein 8.3 H (6.5-8.0) g/dL Albumin 4.6 (3.5-5.0) g/dL Lipase 23 (8-78) U/L COVID-19 (ALYSSA) (Negative) COVID-19 Clin Com Influenza Type A (JUAN ANTONIO) (Negative) Influenza Type B (JUAN ANTONIO) (Negative) Influenza A & B Note 08/13/22 08/13/22 08/13/22 Range/Units 20:35 20:36 20:36 WBC (4.8-10.8) X10*3/uL RBC (4.20-5.50) X10*6/uL Hgb (12.0-16.0) g/dl Hct (37.0-47.0) % MCV (80.0-98.0) fL MCH (27.0-33.0) pg MCHC (31.0-35.0) g/dl RDW (11.0-16.0) % Plt Count (160-400) X10*3/uL MPV (9.4-12.3) fL Immature Gran % (Auto) (0.0-0.4) % Neut % (Auto) (45-73) % Lymph % (Auto) (20-40) % [place] % (Auto) (2-11) % Eos % (Auto) (0-4) % Baso % (Auto) (0-2) % Lymph # (Auto) (1.2-4.9) X10*3/uL [place] # (Auto) (0.1-1.2) X10*3/uL Eos # (Auto) (0.0-0.4) X10*3/uL Baso # (Auto) (0.0-0.2) X10*3/uL Abs Immat Gran (auto) (0.00-0.03) X10*3/uL Absolute Neuts (auto) (2.0-8.3) x10*3/uL Absolute Nucleated RBC (0.0-0.012) X10*3/uL Nucleated RBC % (auto) (0.0-0.2) /100WBC Sodium (135-145) mmol/L Potassium (3.3-5.1) mmol/L Chloride (96-108) mmol/L Carbon Dioxide (22-29) mmol/L Anion Gap (12-20) BUN (9-16) mg/dL Creatinine (0.5-1.4) mg/dL Estim Creat Clear Calc Estimated GFR Random Glucose (60-115) mg/dL Calcium (8.4-10.2) mg/dL Total Bilirubin (0.0-1.0) mg/dL AST (5-31) U/L ALT (0-31) U/L Alkaline Phosphatase (39-117) U/L Troponin I High Sens (<3.5-17.0) ng/L B-Natriuretic Peptide 25 (<100) pg/mL Total Protein (6.5-8.0) g/dL Albumin (3.5-5.0) g/dL Lipase (8-78) U/L COVID-19 (ALYSSA) Negative (Negative) COVID-19 Clin Com See Note Influenza Type A (JUAN ANTONIO) Negative (Negative) Influenza Type B (JUAN ANTONIO) Negative (Negative) Influenza A & B Note See Note <Vanda Adrian, [employer] SAL[employer] ADVISOR - Last Filed: 08/13/22 20:13> Lab Results 08/13/22 08/13/22 08/13/22 Range/Units 20:35 20:35 20:35 WBC 10.2 (4.8-10.8) X10*3/uL RBC 5.09 (4.20-5.50) X10*6/uL Hgb 14.7 (12.0-16.0) g/dl Hct 44.0 (37.0-47.0) % MCV 86.4 (80.0-98.0) fL MCH 28.9 (27.0-33.0) pg MCHC 33.4 (31.0-35.0) g/dl RDW 13.2 (11.0-16.0) % Plt Count 356 (160-400) X10*3/uL MPV 10.8 (9.4-12.3) fL Immature Gran % (Auto) 0.7 H (0.0-0.4) % Neut % (Auto) 78.5 H (45-73) % Lymph % (Auto) 14.8 L (20-40) % [place] % (Auto) 5.1 (2-11) % Eos % (Auto) 0.1 (0-4) % Baso % (Auto) 0.8 (0-2) % Lymph # (Auto) 1.5 (1.2-4.9) X10*3/uL [place] # (Auto) 0.5 (0.1-1.2) X10*3/uL Eos # (Auto) 0.0 (0.0-0.4) X10*3/uL Baso # (Auto) 0.1 (0.0-0.2) X10*3/uL Abs Immat Gran (auto) 0.07 H (0.00-0.03) X10*3/uL Absolute Neuts (auto) 8.0 (2.0-8.3) x10*3/uL Absolute Nucleated RBC 0.000 (0.0-0.012) X10*3/uL Nucleated RBC % (auto) 0.0 (0.0-0.2) /100WBC Sodium 141 (135-145) mmol/L Potassium 4.5 (3.3-5.1) mmol/L Chloride 104 (96-108) mmol/L Carbon Dioxide 27 (22-29) mmol/L Anion Gap 15 (12-20) BUN 13 (9-16) mg/dL Creatinine 0.99 (0.5-1.4) mg/dL Estim Creat Clear Calc 52.4 Estimated GFR 58 Random Glucose 118 H (60-115) mg/dL Calcium 10.6 H D (8.4-10.2) mg/dL Total Bilirubin 0.3 (0.0-1.0) mg/dL AST 28 (5-31) U/L ALT 28 (0-31) U/L Alkaline Phosphatase 89 (39-117) U/L Troponin I High Sens 5.4 (<3.5-17.0) ng/L B-Natriuretic Peptide (<100) pg/mL Total Protein 8.3 H (6.5-8.0) g/dL Albumin 4.6 (3.5-5.0) g/dL Lipase 23 (8-78) U/L COVID-19 (ALYSSA) (Negative) COVID-19 Clin Com Influenza Type A (JUAN ANTONIO) (Negative) Influenza Type B (JUAN ANTONIO) (Negative) Influenza A & B Note 08/13/22 08/13/22 08/13/22 Range/Units 20:35 20:36 20:36 WBC (4.8-10.8) X10*3/uL RBC (4.20-5.50) X10*6/uL Hgb (12.0-16.0) g/dl Hct (37.0-47.0) % MCV (80.0-98.0) fL MCH (27.0-33.0) pg MCHC (31.0-35.0) g/dl RDW (11.0-16.0) % Plt Count (160-400) X10*3/uL MPV (9.4-12.3) fL Immature Gran % (Auto) (0.0-0.4) % Neut % (Auto) (45-73) % Lymph % (Auto) (20-40) % [place] % (Auto) (2-11) % Eos % (Auto) (0-4) % Baso % (Auto) (0-2) % Lymph # (Auto) (1.2-4.9) X10*3/uL [place] # (Auto) (0.1-1.2) X10*3/uL Eos # (Auto) (0.0-0.4) X10*3/uL Baso # (Auto) (0.0-0.2) X10*3/uL Abs Immat Gran (auto) (0.00-0.03) X10*3/uL Absolute Neuts (auto) (2.0-8.3) x10*3/uL Absolute Nucleated RBC (0.0-0.012) X10*3/uL Nucleated RBC % (auto) (0.0-0.2) /100WBC Sodium (135-145) mmol/L Potassium (3.3-5.1) mmol/L Chloride (96-108) mmol/L Carbon Dioxide (22-29) mmol/L Anion Gap (12-20) BUN (9-16) mg/dL Creatinine (0.5-1.4) mg/dL Estim Creat Clear Calc Estimated GFR Random Glucose (60-115) mg/dL Calcium (8.4-10.2) mg/dL Total Bilirubin (0.0-1.0) mg/dL AST (5-31) U/L ALT (0-31) U/L Alkaline Phosphatase (39-117) U/L Troponin I High Sens (<3.5-17.0) ng/L B-Natriuretic Peptide 25 (<100) pg/mL Total Protein (6.5-8.0) g/dL Albumin (3.5-5.0) g/dL Lipase (8-78) U/L COVID-19 (ALYSSA) Negative (Negative) COVID-19 Clin Com See Note Influenza Type A (JUAN ANTONIO) Negative (Negative) Influenza Type B (JUAN ANTONIO) Negative (Negative) Influenza A & B Note See Note <Olvin Cuevas MD - Last Filed: 08/14/22 00:23> Independent Interpretation I performed an independent interpretation of an: EKG <Olvin Cuevas MD - Last Filed: 08/14/22 00:23> Interpretation: Normal sinus rhythm heart rate 75 beats per minute normal interval normal axis no acute ST T wave changes no acute ischemic <Olvin Cuevas MD - Last Filed: 08/14/22 00:23> Discharge Plan Discharge Clinical Impression: Anxiety, Hypertension <Vanda Adrian CNP - Last Filed: 08/13/22 20:13> Patient Disposition: Home, Self-Care <Vanda Adrian CNP - Last Filed: 08/13/22 20:13> Instructions: Chronic Hypertension (ED), Anxiety (ED) <Vanda Adrian CNP - Last Filed: 08/13/22 20:13> Additional Instructions: Continue your blood pressure medications Ativan for anxiety/stress Follow-up with PCP <Vanda Adrian CNP - Last Filed: 08/13/22 20:13> Prescriptions: New lorazepam [Ativan] 0.5 mg tablet 0.5 mg PO BEDTIME PRN (Reason: anxiety) Qty: 14 0RF No Action amlodipine 5 mg tablet 5 mg PO DAILY Qty: 90 3RF cyanocobalamin (vitamin B-12) 1,000 mcg tablet 1,000 mcg PO DAILY Qty: 30 6RF cholecalciferol (vitamin D3) 50 mcg (2,000 unit) capsule 50 mcg PO DAILY 90 Days Qty: 90 1RF ibuprofen 800 mg tablet 800 mg PO Q8H PRN (Reason: pain) Qty: 14 0RF silver sulfadiazine 1 % cream 1 appl topical DAILY PRN (Reason: walker) Qty: 400 0RF Rx Instructions: apply a 1.5 mm thickness cetirizine 10 mg tablet 10 mg PO DAILY atorvastatin 20 mg tablet 20 mg PO BEDTIME 90 Days Qty: 90 0RF lisinopril-hydrochlorothiazide 10-12.5 mg tablet 1 tab PO DAILY <Vanda Adrian CNP - Last Filed: 08/13/22 20:13> Interventions: ED Discharge Assessment Last Done: 08/14/22 00:05 <Vanda Adrian CNP - Last Filed: 08/13/22 20:13> Discharge Date/Time: 08/14/22 00:05 <Vanda Adrian CNP - Last Filed: 08/13/22 20:13>
[2022-08-13 20:13] VITALS: BP 171/97; PULSE 82; RESP 18; TEMP 36.6; O2SAT 99; BMI 28.3
--- NOTE | 2022-08-13 20:13 | ECG_ITS ---
Test Reason : PALPITATIONS Blood Pressure : / mmHG Vent. Rate : 075 BPM Atrial Rate : 075 BPM P-R Int : 136 ms QRS Dur : 076 ms QT Int : 384 ms P-R-T Axes : 047 031 034 degrees QTc Int : 428 ms Normal sinus rhythm Normal ECG When compared to the previous EKG of Nonspecific ST abnormality is no longer Present Referred By: Vanda Adrian Electronically Signed By:PATSY VALDEZ MD
--- NOTE | 2022-08-13 20:29 | PC.NURSE ---
ekg completed at 2023
[2022-08-13 20:40] LABS: MANUAL DIFF FLAG NO
[2022-08-13 20:41] LABS: Basophils Absolute Auto 0.1 X10*3/uL (0.0-0.2); Basophils Percent Auto 0.8 % (0-2); Eosinophils Percent Auto 0.1 % (0-4); Hemoglobin 14.7 g/dl (12.0-16.0); Imm Gran Abs Auto 0.07 X10*3/uL (0.00-0.03); Imm Gran Pct Auto 0.7 % (0.0-0.4); Lymphocytes Absolute Auto 1.5 X10*3/uL (1.2-4.9); Lymphocytes Percent Auto 14.8 % (20-40); Mean Corpuscular HGB Conc 33.4 g/dl (31.0-35.0); Mean Corpuscular Hemoglobin 28.9 pg (27.0-33.0); Mean Corpuscular Volume 86.4 fL (80.0-98.0); Mean Platelet Volume 10.8 fL (9.4-12.3); Monocytes Absolute Auto 0.5 X10*3/uL (0.1-1.2); Monocytes Percent Auto 5.1 % (2-11); Neutrophils Percent Auto 78.5 % (45-73); Platelet Count 356 X10*3/uL (160-400); Red Blood Count 5.09 X10*6/uL (4.20-5.50); Red Cell Distribution Width 13.2 % (11.0-16.0); White Blood Count 10.2 X10*3/uL (4.8-10.8)
[2022-08-13 20:56] LABS: COVID-19 Test Negative (Negative); IDNOW Serial# 55D5AD1C
[2022-08-13 21:00] LABS: Alanine Aminotransferase 28 U/L (0-31); Albumin Level 4.6 g/dL (3.5-5.0); Alkaline Phosphatase 89 U/L (39-117); Anion Gap 15 (12-20); Aspartate Amino Transferase 28 U/L (5-31); Bilirubin Total 0.3 mg/dL (0.0-1.0); Blood Urea Nitrogen 13 mg/dL (9-16); Calcium 10.6 mg/dL (8.4-10.2); Carbon Dioxide 27 mmol/L (22-29); Chloride 104 mmol/L (96-108); Creatinine Clr Calc Pharmacy 52.4; Estimated Glomerular Filt Rate 58; Glucose Random 118 mg/dL (60-115); Lipase 23 U/L (8-78); Potassium 4.5 mmol/L (3.3-5.1); Sodium 141 mmol/L (135-145); Total Protein 8.3 g/dL (6.5-8.0)
[2022-08-13 21:01] LABS: B Type Natriuretic Peptide 25 pg/mL (<100)
[2022-08-13 21:04] LABS: IDNOW Serial# 6674DD1D; Influenza A Negative (Negative); Influenza B2 Negative (Negative)
[2022-08-13 21:07] LABS: Troponin-I High Sensitivity 5.4 ng/L (<3.5-17.0)
[2022-08-13 22:12] VITALS: BP 164/93; PULSE 66; PULSE 68; RESP 14; TEMP 36.4; O2SAT 99
[2022-08-13] MEDS: LORazepam 1 MG TABLET PO (22:46)
[2022-08-13 23:19] VITALS: BP 138/78; PULSE 71
[2022-08-13] MEDS: Ondansetron ODT 4 MG TAB.RAPDIS TRANSLINGU (23:20)
--- NOTE | 2022-08-13 23:20 | PC.NURSE ---
Pt noted to be vomiting at the bedside 15 min after Ativan administration, PO. Pt reports not eating any food since breakfast and feeling nauseas after taking the medication. MD at bedside ordered Zofran sublingual. Two failed attempts at establishing an IV line. MD aware. Current BP 138/78, HR 71. Pt aox4 in no apparent distress. Denies any N/V at this time.
[2022-08-13 23:51] VITALS: BP 130/83; PULSE 76; RESP 12; O2SAT 97
--- NOTE | 2022-08-14 00:05 | PC.NURSE ---
Discharge instructions reviewed with pt. Pt verbalizes understanding.
== END 2022-08-14 00:05 | disposition home or self-care (01) ==
PROVIDERS: Nurse Practitioner Family; Emergency Provider Internal Medicine; PCP Internal Medicine
DX: F41.9 Anxiety disorder, unspecified (principal); I10 Essential (primary) hypertension; R06.02 Shortness of breath; Z20.822 Contact with and (suspected) exposure to COVID-19; E78.00 Pure hypercholesterolemia, unspecified; Z72.89 Other problems related to lifestyle; Z63.79 Other stressful life events affecting family and household; Z79.899 Other long term (current) drug therapy; Z79.02 Long term (current) use of antithrombotics/antiplatelets
CPT/HCPCS: 71046; 80053; 83690; 83880; 84484; 85025; 87502; 87635; 93005; 99283; 99285

== ENCOUNTER 2022-12-26 00:20 | Emergency (ER) | payer OTHER, SELFPAY ==
[2022-12-26 00:48] VITALS: BP 155/91; PULSE 69; RESP 18; TEMP 36.4; O2SAT 98; BMI 27.6
--- NOTE | 2022-12-26 00:53 | ECG_ITS ---
Test Reason : SYNCOPE Blood Pressure : / mmHG Vent. Rate : 066 BPM Atrial Rate : 066 BPM P-R Int : 142 ms QRS Dur : 088 ms QT Int : 442 ms P-R-T Axes : 053 031 043 degrees QTc Int : 463 ms Normal sinus rhythm Normal ECG When compared with ECG of 13-AUG-2022 20:24, No significant change was found Referred By: Generic ED Physician Electronically Signed By:Ryan Epperson
[2022-12-26 01:04] LABS: Basophils Absolute Auto 0.1 X10*3/uL (0.0-0.2); Eosinophils Absolute Auto 0.1 X10*3/uL (0.0-0.4); Eosinophils Percent Auto 1.2 % (0-4); Hematocrit 42.9 % (37.0-47.0); Imm Gran Abs Auto 0.03 X10*3/uL (0.00-0.03); Imm Gran Pct Auto 0.3 % (0.0-0.4); Lymphocytes Absolute Auto 2.6 X10*3/uL (1.2-4.9); Lymphocytes Percent Auto 27.7 % (20-40); MANUAL DIFF FLAG NO; Mean Corpuscular HGB Conc 32.6 g/dl (31.0-35.0); Mean Corpuscular Hemoglobin 28.6 pg (27.0-33.0); Mean Corpuscular Volume 87.7 fL (80.0-98.0); Mean Platelet Volume 10.9 fL (9.4-12.3); Monocytes Absolute Auto 0.6 X10*3/uL (0.1-1.2); Monocytes Percent Auto 6.3 % (2-11); Neutrophils Absolute Auto 5.9 x10*3/uL (2.0-8.3); Neutrophils Percent Auto 63.5 % (45-73); Platelet Count 362 X10*3/uL (160-400); Red Blood Count 4.89 X10*6/uL (4.20-5.50); Red Cell Distribution Width 13.1 % (11.0-16.0); White Blood Count 9.3 X10*3/uL (4.8-10.8)
[2022-12-26 01:19] LABS: Alanine Aminotransferase 25 U/L (0-31); Albumin Level 4.5 g/dL (3.5-5.0); Alkaline Phosphatase 78 U/L (39-117); Anion Gap 16 (12-20); Aspartate Amino Transferase 28 U/L (5-31); Bilirubin Direct 0.1 mg/dL (0.0-0.5); Bilirubin Total 0.4 mg/dL (0.0-1.0); Blood Urea Nitrogen 14 mg/dL (9-16); Calcium 9.6 mg/dL (8.4-10.2); Carbon Dioxide 23 mmol/L (22-29); Chloride 107 mmol/L (96-108); Creatinine Clr Calc Pharmacy 61.3; Estimated Glomerular Filt Rate > 60; Glucose Random 123 mg/dL (60-115); Lipase 44 U/L (8-78); Potassium 3.1 mmol/L (3.3-5.1); Sodium 143 mmol/L (135-145); Total Protein 8.1 g/dL (6.5-8.0)
[2022-12-26 01:25] LABS: Troponin-I High Sensitivity < 2.7 ng/L (<3.5-17.0)
[2022-12-26 01:54] VITALS: BP 139/83; PULSE 62; RESP 16; TEMP 36.6; O2SAT 100
--- NOTE | 2022-12-26 02:16 | PC.NURSE ---
Pt ca&ox3, with flat affect. No signs of distress. Pt denies pain and sob. Pt's daughter at bedside. Daughter reports pt's son passed a few days ago, and while at [facility] the pt fainted in a chair. Pt changed into hospital attire. Will continue to monitor.
--- NOTE | 2022-12-26 02:52 | ED_ITS ---
HPI - Syncope General Chief Complaint: Syncope Stated Complaint: Syncope Time Seen by Provider: 12/26/22 02:46 Source: patient, family (Daughter) and educational sign language interpreter Mode of arrival: ambulatory Limitations: no limitations History of Present Illness HPI narrative: Patient is a 57-year-old female who is a mother lost her son yesterday in a car accident, patient today had activity the patient got very emotional family walk her outside sat her on the chair when she passed out for few seconds, then patient was transported to the hospital, patient declined any CP or SOB. Patient appear sad and grieving patient declined SI or HI. Related Data Home Medications Medication Instructions Recorded Confirmed cetirizine 10 mg tablet 10 mg PO DAILY 07/29/20 10/28/21 lisinopril 10 1 tab PO DAILY 10/22/20 10/28/21 mg-hydrochlorothiazide 12.5 mg tablet Previous Rx's Medication Instructions Recorded ibuprofen 800 mg tablet 800 mg PO Q8H PRN pain #14 tabs 06/23/21 silver sulfadiazine 1 % topical 1 appl topical DAILY PRN walker 06/23/21 cream #400 grams cyanocobalamin (vitamin B-12) 1,000 mcg PO DAILY #30 tabs 09/06/21 1,000 mcg tablet atorvastatin 20 mg tablet 20 mg PO BEDTIME 90 days #90 tabs 10/28/21 cholecalciferol (vitamin D3) 50 50 mcg PO DAILY 90 days #90 caps 10/31/21 mcg (2,000 unit) capsule lorazepam 0.5 mg tablet (Ativan) 0.5 mg PO BEDTIME PRN anxiety #14 08/13/22 tabs amlodipine 5 mg tablet 5 mg PO DAILY #90 tabs 08/15/22 Allergies Allergy/AdvReac Type Severity Reaction Status Date / Time No Known Allergies Allergy Verified 12/26/22 00:51 Review of Systems Review of Systems: All other systems are reviewed and are negative Constitutional: Reports as per HPI and Reports no additional constitutional complaints Eyes: Reports as per HPI and Reports no additional eye complaints Reports system reviewed and no additional complaints, except as documented Cardiovascular: Reports as per HPI and Reports no additional cardiovascular complaints Respiratory: Reports as per HPI and Reports no additional respiratory complaints Gastrointestinal: Reports as per HPI and Reports no additional gastrointestinal complaints Genitourinary: Reports no additional female genitourinary complaints Musculoskeletal: Reports no additional musculoskeletal complaints Skin/Breast: Reports system reviewed and no additional complaints, except as docu Psychiatric: Reports no additional psychiatric complaints Endocrine: Reports no additional endocrine complaints Hematologic/Lymphatic: Reports no additional hematologic/lymphatic complaints Allergic/Immunologic: Reports no additional allergic/immunologic complaints Reports system reviewed and no additional complaints, except as documented and Reports Abnormal speech present [facility] Past Medical History Medical History B12 deficiency Essential hypertension Hypovitaminosis D Physical exam Postmenopausal Pure hypercholesterolemia Surgical History History of section History of cholecystectomy History of lipoma History of shoulder surgery Family History Family History Father Lung cancer Mother Stroke Maternal Grandmother Stroke CVD (cardiovascular disease) Maternal Grandfather CVD (cardiovascular disease) Stroke Maternal Uncle Myocardial infarction Social History Social History Housing: Apartment Alcohol intake: never Patient Tobacco Use Status: Never used Tobacco Smoked in Last 30 Days: No e-Cigarette/Vaping Use: Never Used Second Hand Smoke Exposure: No Use of substances other than those prescribed or required for medical reasons: No Advance Directives: No Advance Directives Information Provided: No Patient : No service: No Current occupational status: employed Current occupation: [employer] Cognitive needs: No Hearing needs: No Vision needs: No Physical Exam Vital Signs: Vital Signs: Last Vital Signs Temp 97.8 F 12/26/22 01:54 Pulse 62 12/26/22 01:54 Resp 16 12/26/22 01:54 BP 139/83 12/26/22 01:54 Pulse Ox 100 12/26/22 01:54 O2 Del Method Room Air 12/26/22 01:54 BMI result Body Mass Index 27.6 Vital signs have been reviewed as appeared to be correct. Blood pressure normal. Heart rate normal. Respiration rate normal. Temperature normal. Oxygen saturation normal. Appearance: Alert. Oriented X3. No acute distress. Head: Normal external exam. Normocephalic. Atraumatic. No Cortes signs noted. No raccoon eyes noted Eyes: PERRLA. EOMI. Conjunctiva and sclera normal. Eyelids normal. ENT: TM's Normal. Pharynx normal. Uvula midline. Moist mucous membranes. No trismus noted. No drooling noted. No muffled voice noted. Neck: Normal inspection. Neck supple. FROM. No adenopathy. Thyroid Normal. No meningeal signs. No neck mass noted. CVS: Normal heart rate and rhythm. Heart sound normal. No murmurs noted. Pulses normal throughout. Respiratory: No respiratory distress. Painless inspiration. Breath sounds normal. No wheezes/rales/rhonchi noted. Chest nontender. No accessory muscle usage noted or decreased air movement noted. Abdomen: Soft and nontender. Bowel sounds normal in all 4 quadrants. No distention noted. No organomegaly noted. No visible injury noted. Back: No CVA tenderness. Full range of motion noted. Skin: Skin warm and dry. Normal skin color. Normal skin turgor. No rashes/lesions/lacerations noted. Extremities: No lower extremity edema. Extremities exhibit normal range of motion. Extremities nontender. Neuro: Oriented X 3. Cranial nerve exam: II-XII are grossly intact No motor deficit. No sensory deficit. Reflexes normal. Patient Orientation: Person, Place, Time and Situation, okay hygiene and grooming. Fair eye contact, attentive, no tics or tremors. Level of Consciousness: Awake, Appropriate and Alert Patient Behavior: Appropriate, Guarded, Cooperative and Anxious Mood Description: Constricted, Blunted and Apprehensive Affect Description: Constricted, Blunted and Apprehensive Patient Cognition Impaired: No Ability to Follow Directions: Excellent Speech Pattern: Clear, Appropriate and Spontaneous Speech, nonpressured, spontaneous with regular rate and rhythm, normal volume and prosody. No d ysarthria. Memory Description: Intact, Immediate Intact and Short Term Intact Hallucinations: None Delusions: Not Present Thought Process: Intact Thought Content: positive for Intact, positive for Logical, denies Suicidal Ideation and denies Homicidal Ideation. Depressive Symptoms: Not present. Judgement and Insight: Limited but adequate. Course Course Course Narrative: Patient just lost her son a day ago had a syncopal episode, patient appears to be in grief and denial phase, no CP, no SOB, no SI, no HI. Will discharge. Medical Decision Making Differential Diagnosis Differential Diagnoses: The differential diagnosis associated with the presentation includes (ACS, electrolyte abnormalities, emotional syncopal episode, grief.) Admission/Observation Consideration of admission/observation: Escalation of care including admission/observation considered Lab Data MDM Lab Attestation statement: I reviewed the patient's lab results. 12/26/22 00:58 12/26/22 00:58 Labs: Lab Results 12/26/22 12/26/22 12/26/22 Range/Units 00:58 00:58 00:58 WBC 9.3 (4.8-10.8) X10*3/uL RBC 4.89 (4.20-5.50) X10*6/uL Hgb 14.0 (12.0-16.0) g/dl Hct 42.9 (37.0-47.0) % MCV 87.7 (80.0-98.0) fL MCH 28.6 (27.0-33.0) pg MCHC 32.6 (31.0-35.0) g/dl RDW 13.1 (11.0-16.0) % Plt Count 362 (160-400) X10*3/uL MPV 10.9 (9.4-12.3) fL Immature Gran % (Auto) 0.3 (0.0-0.4) % Neut % (Auto) 63.5 (45-73) % Lymph % (Auto) 27.7 (20-40) % Josephine % (Auto) 6.3 (2-11) % Eos % (Auto) 1.2 (0-4) % Baso % (Auto) 1.0 (0-2) % Lymph # (Auto) 2.6 (1.2-4.9) X10*3/uL Josephine # (Auto) 0.6 (0.1-1.2) X10*3/uL Eos # (Auto) 0.1 (0.0-0.4) X10*3/uL Baso # (Auto) 0.1 (0.0-0.2) X10*3/uL Abs Immat Gran (auto) 0.03 (0.00-0.03) X10*3/uL Absolute Neuts (auto) 5.9 (2.0-8.3) x10*3/uL Absolute Nucleated RBC 0.000 (0.0-0.012) X10*3/uL Nucleated RBC % (auto) 0.0 (0.0-0.2) /100WBC Sodium 143 (135-145) mmol/L Potassium 3.1 L D (3.3-5.1) mmol/L Chloride 107 (96-108) mmol/L Carbon Dioxide 23 (22-29) mmol/L Anion Gap 16 (12-20) BUN 14 (9-16) mg/dL Creatinine 0.86 (0.5-1.4) mg/dL Estim Creat Clear Calc 61.3 Estimated GFR > 60 Random Glucose 123 H (60-115) mg/dL Calcium 9.6 D (8.4-10.2) mg/dL Total Bilirubin 0.4 (0.0-1.0) mg/dL Direct Bilirubin 0.1 (0.0-0.5) mg/dL AST 28 (5-31) U/L ALT 25 (0-31) U/L Alkaline Phosphatase 78 (39-117) U/L Troponin I High Sens < 2.7 D (<3.5-17.0) ng/L Total Protein 8.1 H (6.5-8.0) g/dL Albumin 4.5 (3.5-5.0) g/dL Lipase 44 (8-78) U/L Independent Interpretation I performed an independent interpretation of an: EKG (Normal sinus rhythm at 66 beats per minutes, normal axis deviation, normal intervals, no ST-T changes. No change from previous EKG.) Discharge Plan Discharge Clinical Impression: Grief reaction, Syncope and collapse Patient Disposition: Home, Self-Care Instructions: Grief and Loss (ED) Prescriptions: No Action cyanocobalamin (vitamin B-12) 1,000 mcg tablet 1,000 mcg PO DAILY Qty: 30 6RF cholecalciferol (vitamin D3) 50 mcg (2,000 unit) capsule 50 mcg PO DAILY 90 Days Qty: 90 1RF amlodipine 5 mg tablet 5 mg PO DAILY Qty: 90 3RF ibuprofen 800 mg tablet 800 mg PO Q8H PRN (Reason: pain) Qty: 14 0RF silver sulfadiazine 1 % cream 1 appl topical DAILY PRN (Reason: walker) Qty: 400 0RF Rx Instructions: apply a 1.5 mm thickness lorazepam [Ativan] 0.5 mg tablet 0.5 mg PO BEDTIME PRN (Reason: anxiety) Qty: 14 0RF cetirizine 10 mg tablet 10 mg PO DAILY atorvastatin 20 mg tablet 20 mg PO BEDTIME 90 Days Qty: 90 0RF lisinopril-hydrochlorothiazide 10-12.5 mg tablet 1 tab PO DAILY Referrals: Kinjal Horne MD [Primary Care Provider] -
[2022-12-26] MEDS: Potassium Chloride Packet 20 MEQ PACKET 40 MEQ PO (03:25)
--- NOTE | 2022-12-26 03:30 | PC.NURSE ---
Pt ca&ox3, no signs of distress. Pt medicated per mar. Daughter at bedside. Pt on bedside monitor. Will continue to monitor.
== END 2022-12-26 05:09 | disposition home or self-care (01) ==
PROVIDERS: Emergency Provider Emergency Medicine; PCP Internal Medicine
DX: F43.20 Adjustment disorder, unspecified (principal); R55 Syncope and collapse; I10 Essential (primary) hypertension; E78.00 Pure hypercholesterolemia, unspecified; Z72.89 Other problems related to lifestyle; Z63.4 Disappearance and death of family member; Z79.02 Long term (current) use of antithrombotics/antiplatelets; Z79.899 Other long term (current) drug therapy
CPT/HCPCS: 36415; 80048; 80076; 83690; 84484; 85025; 93005; 99283; 99284; S9485

== ENCOUNTER 2023-02-06 14:02 | Emergency (ER) | payer OTHER, SELFPAY ==
--- NOTE | ~2023-02-06 | XR_ITS ---
EXAMINATION: XR FOOT, LEFT CLINICAL INFORMATION: Left foot pain. COMPARISON: None available. TECHNIQUE: AP, lateral, and oblique views of the left foot. FINDINGS: Plantar and Achilles calcaneal spurs. No fracture appreciated. Alignment is anatomic. Joint spaces are maintained. XR/XR foot LT min 3V IMPRESSION: No acute finding.
[2023-02-06 15:21] VITALS: BP 151/83; PULSE 56; RESP 16; TEMP 35.7; O2SAT 99; BMI 25.9
--- NOTE | 2023-02-06 15:21 | ED.GENADULT ---
HPI - General Adult General Chief complaint: Extremity Injury, Lower Stated complaint: fall l leg inj Related Data Home Medications Medication Instructions Recorded Confirmed cetirizine 10 mg tablet 10 mg PO DAILY 07/29/20 10/28/21 lisinopril 10 1 tab PO DAILY 10/22/20 10/28/21 mg-hydrochlorothiazide 12.5 mg tablet Previous Rx's Medication Instructions Recorded ibuprofen 800 mg tablet 800 mg PO Q8H PRN pain #14 tabs 06/23/21 silver sulfadiazine 1 % topical 1 appl topical DAILY PRN walker 06/23/21 cream #400 grams cyanocobalamin (vitamin B-12) 1,000 mcg PO DAILY #30 tabs 09/06/21 1,000 mcg tablet atorvastatin 20 mg tablet 20 mg PO BEDTIME 90 days #90 tabs 10/28/21 cholecalciferol (vitamin D3) 50 50 mcg PO DAILY 90 days #90 caps 10/31/21 mcg (2,000 unit) capsule lorazepam 0.5 mg tablet (Ativan) 0.5 mg PO BEDTIME PRN anxiety #14 08/13/22 tabs amlodipine 5 mg tablet 5 mg PO DAILY #90 tabs 08/15/22 acetaminophen 650 mg 1,300 mg PO Q12H PRN fever or pain 02/08/23 tablet,extended release (Mapap 30 days #120 tabs Arthritis Pain) Allergies Allergy/AdvReac Type Severity Reaction Status Date / Time No Known Allergies Allergy Verified 02/06/23 15:21 [facility] Past Medical History Medical History B12 deficiency Essential hypertension Hypovitaminosis D Physical exam Postmenopausal Pure hypercholesterolemia Surgical History History of section History of cholecystectomy History of lipoma History of shoulder surgery Family History Family History Father Lung cancer Mother Stroke Maternal Grandmother Stroke CVD (cardiovascular disease) Maternal Grandfather CVD (cardiovascular disease) Stroke Maternal Uncle Myocardial infarction Social History Social History Housing: Apartment Alcohol intake: never Patient Tobacco Use Status: Never used Tobacco e-Cigarette/Vaping Use: Never Used Second Hand Smoke Exposure: No Advance Directives: No Advance Directives Information Provided: No service: No Current occupational status: employed Current occupation: [employer] Cognitive needs: No Hearing needs: No Vision needs: No Physical Exam ED Vital Signs: BMI result Body Mass Index 25.9 Course Course Course Narrative: This is an RME: Additional HPI, ROS, PE not included below will be deferred to primary provider. This is a 78-avvc-qas-female, with a history of hypertension, presenting to the ER for evaluation of left foot pain x 1 week. She stubbed her left fifth toe 1 week ago, has had pain and swelling. TTP over 3-4th metatarsal and fifth tarsal. VSS. Plan: xray foot Reevaluation(s) Reevaluation #1: Patient eloped prior to being seen by primary provider Discharge Plan Discharge Clinical Impression: Foot pain Patient Disposition: Elopement Prescriptions: No Action cyanocobalamin (vitamin B-12) 1,000 mcg tablet 1,000 mcg PO DAILY Qty: 30 6RF cholecalciferol (vitamin D3) 50 mcg (2,000 unit) capsule 50 mcg PO DAILY 90 Days Qty: 90 1RF amlodipine 5 mg tablet 5 mg PO DAILY Qty: 90 3RF acetaminophen [Mapap Arthritis Pain] 650 mg tablet extended release 1,300 mg PO Q12H PRN (Reason: fever or pain) 30 Days Qty: 120 0RF ibuprofen 800 mg tablet 800 mg PO Q8H PRN (Reason: pain) Qty: 14 0RF silver sulfadiazine 1 % cream 1 appl topical DAILY PRN (Reason: walker) Qty: 400 0RF Rx Instructions: apply a 1.5 mm thickness lorazepam [Ativan] 0.5 mg tablet 0.5 mg PO BEDTIME PRN (Reason: anxiety) Qty: 14 0RF cetirizine 10 mg tablet 10 mg PO DAILY atorvastatin 20 mg tablet 20 mg PO BEDTIME 90 Days Qty: 90 0RF lisinopril-hydrochlorothiazide 10-12.5 mg tablet 1 tab PO DAILY Discharge Date/Time: 02/06/23 22:43
== END 2023-02-06 22:43 | disposition left against medical advice (07) ==
PROVIDERS: Emergency Provider Emergency Medicine; PCP Internal Medicine
DX: S99.922A Unspecified injury of left foot, initial encounter (principal); W22.8XXA Striking against or struck by other objects, initial encounter; I10 Essential (primary) hypertension; Y93.9 Activity, unspecified; Y92.9 Unspecified place or not applicable; Y99.9 Unspecified external cause status
CPT/HCPCS: 73630; 99281; 99283

== ENCOUNTER 2023-07-25 14:44 | Emergency (ER) | payer OTHER, SELFPAY ==
[2023-07-25 15:39] VITALS: BP 151/89; PULSE 86; RESP 18; TEMP 37.1; O2SAT 98; BMI 27.3
--- NOTE | 2023-07-25 16:11 | ED.GENADULT ---
HPI - General Adult General Chief complaint: General Medical Stated complaint: Rash Time Seen by Provider: 07/25/23 16:11 Source: patient and RN notes reviewed Mode of arrival: ambulatory Limitations: no limitations History of Present Illness HPI narrative: This is a 57-year-old female presenting to the emergency department for evaluation of right-sided rash. Patient reports that 2 days ago she developed a burning sensation to the right side of her forehead, describing this as needles in stating like sensation. She developed a rash to the right side of her face. She reports some swelling around her right eye. Denies any vision changes, fevers, chills, chest pain, shortness breath, abdominal pain, nausea, vomiting or diarrhea. She is otherwise feeling well. No headaches. No other complaints or concerns at this time. MD complaint: Rash Onset (ago): day(s) Location: face Radiation: non-radiation Quality: burning Relieving factors: none Exacerbating factors: none Associated symptoms: denies other symptoms Treatments prior to arrival: none Related Data Home Medications Medication Instructions Recorded Confirmed cetirizine 10 mg tablet 10 mg PO DAILY 07/29/20 10/28/21 lisinopril 10 1 tab PO DAILY 10/22/20 10/28/21 mg-hydrochlorothiazide 12.5 mg tablet Previous Rx's Medication Instructions Recorded ibuprofen 800 mg tablet 800 mg PO Q8H PRN pain #14 tabs 06/23/21 silver sulfadiazine 1 % topical 1 appl topical DAILY PRN walker 06/23/21 cream #400 grams cyanocobalamin (vitamin B-12) 1,000 mcg PO DAILY #30 tabs 09/06/21 1,000 mcg tablet atorvastatin 20 mg tablet 20 mg PO BEDTIME 90 days #90 tabs 10/28/21 cholecalciferol (vitamin D3) 50 50 mcg PO DAILY 90 days #90 caps 10/31/21 mcg (2,000 unit) capsule lorazepam 0.5 mg tablet (Ativan) 0.5 mg PO BEDTIME PRN anxiety #14 08/13/22 tabs amlodipine 5 mg tablet 5 mg PO DAILY #90 tabs 08/15/22 acetaminophen 650 mg 1,300 mg (2 x 650 mg) PO Q12H PRN 02/08/23 tablet,extended release (Mapap fever or pain 30 days #120 tabs Arthritis Pain) acetaminophen 500 mg tablet 500 mg PO Q6H PRN fever or pain 07/25/23 (Tylenol Extra Strength) #30 tabs ibuprofen 600 mg tablet 600 mg PO Q6H PRN fever or pain 07/25/23 #30 tabs prednisone 20 mg tablet 40 mg (2 x 20 mg) PO DAILY 5 days 07/25/23 #10 tabs valacyclovir 1 gram tablet 1,000 mg PO TID 10 days #30 tabs 07/25/23 (Valtrex) Allergies Allergy/AdvReac Type Severity Reaction Status Date / Time No Known Allergies Allergy Verified 02/06/23 15:21 Review of Systems Review of Systems: Yes all other systems are reviewed and are negative Constitutional: Constitutional: Reports as per [facility] Past Medical History Attestation statement: The following information was validated with the patient. Onset Date is defined in the Problem List Problems that require an onset date and time if occurred within 24 hrs of arrival to the ED Aortic Dissection and Rupture; Neurologic impairment; Cardiopulmonary Arrest; Endotracheal Intubation; Insertion or Replacement of Mechanical Circulatory Assist Device Medical History Hypovitaminosis D Postmenopausal Pure hypercholesterolemia Physical exam B12 deficiency Essential hypertension Surgical History History of shoulder surgery History of lipoma History of section History of cholecystectomy Family History Family History Father Lung cancer Mother Stroke Maternal Grandmother Stroke CVD (cardiovascular disease) Maternal Grandfather CVD (cardiovascular disease) Stroke Maternal Uncle Myocardial infarction Social History Social History Housing: Apartment Alcohol intake: never Patient Tobacco Use Status: Never used Tobacco e-Cigarette/Vaping Use: Never Used Second Hand Smoke Exposure: No Advance Directives: No Advance Directives Information Provided: No service: No Current occupational status: employed Current occupation: [employer] Cognitive needs: No Hearing needs: No Vision needs: No Physical Exam ED Vital Signs: Vital Signs - 24 hr 07/25/23 15:39 07/25/23 16:26 Temperature 98.7 F 98.9 F Pulse Rate 86 89 Respiratory Rate 18 18 Blood Pressure 151/89 H 150/89 H Pulse Oximetry 98 98 Oxygen Delivery Method Room Air Room Air BMI result Body Mass Index 27.3 Const General: cooperative, comfortable and no acute distress Orientation/consciousness: patient oriented x3 Limitations: no limitations HENMT Head: Yes normal to inspection, Yes normocephalic and Yes atraumatic Ears: hearing grossly normal bilaterally General nose exam: Normal external nose present Face and sinus: Yes normal facial exam Mouth: Normal oral and palatal mucosa present, oropharynx normal and moist mucous membranes Throat: Yes posterior oropharynx normal Eyes General: appearance normal, both eyes and all related structures Eyelids: Yes eyelids normal Conjunctivae: conjunctivae normal Sclerae: sclerae normal Pupils: Equal, round and reactive pupils present EOM: EOMs intact bilaterally Neck Neck: Yes normal visual inspection, Yes full ROM and Yes no lymphadenopathy Lymphatic: no lymphadenopathy noted Chest Chest palpation & inspection: normal inspection of the chest Resp Effort & Inspection: normal respiratory effort and able to speak in complete sentences Auscultation: clear to auscultation bilaterally, no crackles, no rales, no rhonchi and no wheezes Cardio Rate: regular rate Rhythm: regular rhythm Heart sounds: S1 normal heart sound present and S2 normal heart sound present GI Inspection: Yes normal to inspection Skin Other: Right side of forehead with pustular macular papular rash, tender to palpation, noted to the right side of forehead, see above picture. Also lesion to the right upper lip. No extension into the right eye. General skin exam: no rashes or lesions noted Trauma: no lacerations or abrasions Wounds: no wounds Neuro General: patient oriented x3 and moves all extremities Cranial nerves: Yes Equal, round and reactive pupils present Extrem General: Yes normal to inspection Right upper extremity: normal to inspection Left upper extremity: normal to inspection Right lower extremity: normal to inspection Left lower extremity: normal to inspection Medical Decision Making Medical Decision Making MDM Narrative: 57-year-old female presenting to the emergency department for evaluation of painful rash to right forehead x3 days. On arrival, blood pressure mildly elevated at 150 1/89, patient afebrile, physical exam concerning for herpes zoster. Patient has no visual changes, no eye pain, with no surrounding lesions into the eye. Will treat with course of antiviral and prednisone. Advised to follow-up with primary care physician. Given return precautions. Patient understands and agrees with plan. Patient stable for discharge Differential Diagnosis Differential Diagnoses: The differential diagnosis associated with the presentation includes herpes zoster, contact dermatitis, folliculitis, cellulitis Discharge Plan Discharge Clinical Impression: Shingles Patient Disposition: Home, Self-Care Instructions: Shingles (ED) Additional Instructions: You were seen here today due to a painful rash on your face. This rash is consistent with something called herpes zoster or shingles. Valtrex is a medication that will help with the virus. Prednisone will help with the swelling. Please take prescribed medication as directed. Alternate between Tylenol and Motrin as prescribed. If your symptoms worsen, including worsening pain, changes in your vision, please return for re-evaluation. You need to follow-up with your primary care physician, call tomorrow to make an appointment. Usted fue visto aqu? hoy debido a un doloroso sarpullido en la sonya. Esta erupci?n es consistente con algo llamado herpes zoster o culebrilla. Valtrex es un medicamento que ayudar? con el virus. La prednisona ayudar? con la hinchaz?n. [place] los medicamentos recetados seg?n las indicaciones. [place] entre Tylenol y Motrin seg?n lo prescrito. Si abner s?ntomas empeoran, incluido el empeoramiento del dolor o cambios en ramirez visi?n, regrese para jose r nueva evaluaci?n. Necesita hacer un seguimiento con ramirez m?dico de atenci?n primaria, llame ma?earle para programar jose r liyah. Prescriptions: New valacyclovir [Valtrex] 1 gram tablet 1,000 mg PO TID 10 Days Qty: 30 0RF prednisone 20 mg tablet 40 mg PO DAILY 5 Days Qty: 10 0RF ibuprofen 600 mg tablet 600 mg PO Q6H PRN (Reason: fever or pain) Qty: 30 0RF acetaminophen [Tylenol Extra Strength] 500 mg tablet 500 mg PO Q6H PRN (Reason: fever or pain) Qty: 30 0RF No Action cyanocobalamin (vitamin B-12) 1,000 mcg tablet 1,000 mcg PO DAILY Qty: 30 6RF cholecalciferol (vitamin D3) 50 mcg (2,000 unit) capsule 50 mcg PO DAILY 90 Days Qty: 90 1RF amlodipine 5 mg tablet 5 mg PO DAILY Qty: 90 3RF acetaminophen [Mapap Arthritis Pain] 650 mg tablet extended release 1,300 mg PO Q12H PRN (Reason: fever or pain) 30 Days Qty: 120 0RF ibuprofen 800 mg tablet 800 mg PO Q8H PRN (Reason: pain) Qty: 14 0RF silver sulfadiazine 1 % cream 1 appl topical DAILY PRN (Reason: walker) Qty: 400 0RF Rx Instructions: apply a 1.5 mm thickness lorazepam [Ativan] 0.5 mg tablet 0.5 mg PO BEDTIME PRN (Reason: anxiety) Qty: 14 0RF cetirizine 10 mg tablet 10 mg PO DAILY atorvastatin 20 mg tablet 20 mg PO BEDTIME 90 Days Qty: 90 0RF lisinopril-hydrochlorothiazide 10-12.5 mg tablet 1 tab PO DAILY Interventions: ED Discharge Assessment Last Done: 07/25/23 16:27 Discharge Date/Time: 07/25/23 16:28 Print Language: French
[2023-07-25 16:26] VITALS: BP 150/89; PULSE 89; RESP 18; TEMP 37.2; O2SAT 98
== END 2023-07-25 16:28 | disposition home or self-care (01) ==
PROVIDERS: Emergency Provider Emergency Medicine; PCP Internal Medicine
DX: B02.9 Zoster without complications (principal)
CPT/HCPCS: 99283

== ENCOUNTER → 2023-10-24 12:22 | Outpatient (BNVA) | payer SELFPAY | PROVIDERS: PCP Internal Medicine; Visit Provider Physician Assistant Medical | DX: Z02.1 Encounter for pre-employment examination (principal) ==

== ENCOUNTER 2023-10-30 13:24 | Emergency (ER) | payer MEDICAID, SELFPAY ==
[2023-10-30 14:25] VITALS: BP 176/84; PULSE 65; RESP 20; TEMP 36.6; O2SAT 98; BMI 27.6
--- NOTE | 2023-10-30 14:37 | ED_ITS ---
HPI - General Adult General Chief complaint: Eye Problems Stated complaint: r eye issue Source: patient Mode of arrival: ambulatory Limitations: no limitations History of Present Illness HPI narrative: LEft without being seen Related Data Home Medications ?Medication ?Instructions ?Recorded ?Confirmed cetirizine 10 mg tablet 10 mg PO DAILY 07/29/20 10/28/21 lisinopril 10 1 tab PO DAILY 10/22/20 10/28/21 mg-hydrochlorothiazide 12.5 mg tablet Previous Rx's ?Medication ?Instructions ?Recorded ibuprofen 800 mg tablet 800 mg PO Q8H PRN pain #14 tabs 06/23/21 silver sulfadiazine 1 % topical 1 appl topical DAILY PRN walker 06/23/21 cream #400 grams cyanocobalamin (vitamin B-12) 1,000 mcg PO DAILY #30 tabs 09/06/21 1,000 mcg tablet atorvastatin 20 mg tablet 20 mg PO BEDTIME 90 days #90 tabs 10/28/21 cholecalciferol (vitamin D3) 50 50 mcg PO DAILY 90 days #90 caps 10/31/21 mcg (2,000 unit) capsule lorazepam 0.5 mg tablet (Ativan) 0.5 mg PO BEDTIME PRN anxiety #14 08/13/22 tabs acetaminophen 650 mg 1,300 mg (2 x 650 mg) PO Q12H PRN 02/08/23 tablet,extended release (Mapap fever or pain 30 days #120 tabs Arthritis Pain) acetaminophen 500 mg tablet 500 mg PO Q6H PRN fever or pain 07/25/23 (Tylenol Extra Strength) #30 tabs ibuprofen 600 mg tablet 600 mg PO Q6H PRN fever or pain 07/25/23 #30 tabs prednisone 20 mg tablet 40 mg (2 x 20 mg) PO DAILY 5 days 07/25/23 #10 tabs valacyclovir 1 gram tablet 1,000 mg PO TID 10 days #30 tabs 07/25/23 (Valtrex) amlodipine 5 mg tablet 5 mg PO DAILY #90 tabs 10/09/23 Allergies Allergy/AdvReac Type Severity Reaction Status Date / Time No Known Allergies Allergy Verified 10/30/23 14:31 [facility] Past Medical History Medical History Hypovitaminosis D Postmenopausal Pure hypercholesterolemia Physical exam B12 deficiency Essential hypertension Surgical History History of shoulder surgery History of lipoma History of section History of cholecystectomy Family History Family History Father Lung cancer Mother Stroke Maternal Grandmother Stroke CVD (cardiovascular disease) Maternal Grandfather CVD (cardiovascular disease) Stroke Maternal Uncle Myocardial infarction Social History Social History Housing: Apartment Alcohol intake: never Patient Tobacco Use Status: Never used Tobacco e-Cigarette/Vaping Use: Never Used Second Hand Smoke Exposure: No Advance Directives: No Advance Directives Information Provided: No service: No Current occupational status: employed 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 Patient states mild visual disturbance. Denies any loss of vision. Tonometry pressure of right eye is 15. negative hyphema. Discharge Plan Discharge Clinical Impression: Acute eye pain Patient Disposition: Left W/O Completing Treatment Prescriptions: No Action cyanocobalamin (vitamin B-12) 1,000 mcg tablet 1,000 mcg PO DAILY Qty: 30 6RF cholecalciferol (vitamin D3) 50 mcg (2,000 unit) capsule 50 mcg PO DAILY 90 Days Qty: 90 1RF acetaminophen [Mapap Arthritis Pain] 650 mg tablet extended release 1,300 mg PO Q12H PRN (Reason: fever or pain) 30 Days Qty: 120 0RF amlodipine 5 mg tablet 5 mg PO DAILY Qty: 90 3RF ibuprofen 800 mg tablet 800 mg PO Q8H PRN (Reason: pain) Qty: 14 0RF silver sulfadiazine 1 % cream 1 appl topical DAILY PRN (Reason: walker) Qty: 400 0RF Rx Instructions: apply a 1.5 mm thickness lorazepam [Ativan] 0.5 mg tablet 0.5 mg PO BEDTIME PRN (Reason: anxiety) Qty: 14 0RF valacyclovir [Valtrex] 1 gram tablet 1,000 mg PO TID 10 Days Qty: 30 0RF prednisone 20 mg tablet 40 mg PO DAILY 5 Days Qty: 10 0RF ibuprofen 600 mg tablet 600 mg PO Q6H PRN (Reason: fever or pain) Qty: 30 0RF acetaminophen [Tylenol Extra Strength] 500 mg tablet 500 mg PO Q6H PRN (Reason: fever or pain) Qty: 30 0RF cetirizine 10 mg tablet 10 mg PO DAILY atorvastatin 20 mg tablet 20 mg PO BEDTIME 90 Days Qty: 90 0RF lisinopril-hydrochlorothiazide 10-12.5 mg tablet 1 tab PO DAILY Discharge Date/Time: 10/30/23 19:45
== END 2023-10-30 19:45 | disposition left against medical advice (07) ==
LOC: HO.ED 19:45
PROVIDERS: Emergency Provider Emergency Medicine; PCP Internal Medicine
DX: H57.11 Ocular pain, right eye (principal); I10 Essential (primary) hypertension
CPT/HCPCS: 99281

== ENCOUNTER 2023-11-06 09:52 | Outpatient (AMB) | payer MEDICAID, SELFPAY ==
--- NOTE | 2023-11-06 09:37 | MHC.PC.OV ---
Intake Visit Reasons: eye discomfort, BP Open Tenter Operator Required: No Accompanied by: Self / Same As Patient Allergies No Known Allergies Allergy (Verified 11/06/23 09:38) Medication List - Last Reconciled 11/06/23 by Kinjal Esposito MD acetaminophen (Tylenol Extra Strength) 500 mg PO Q6H PRN acetaminophen ER (Mapap Arthritis Pain) 1,300 mg (2 x 650 mg) PO Q12H PRN 30 days amlodipine 5 mg PO DAILY atorvastatin 20 mg PO BEDTIME 90 days cetirizine 10 mg PO DAILY cholecalciferol (vitamin D3) 50 mcg PO DAILY 90 days cyanocobalamin (vitamin B-12) 1,000 mcg PO DAILY ibuprofen 800 mg PO Q8H PRN ibuprofen 600 mg PO Q6H PRN lisinopril-hydrochlorothiazide 10-12.5 mg 1 tab PO DAILY lorazepam (Ativan) 0.5 mg PO BEDTIME PRN prednisone 40 mg (2 x 20 mg) PO DAILY 5 days silver sulfadiazine 1% 1 appl topical DAILY PRN valacyclovir (Valtrex) 1,000 mg PO TID 10 days Tobacco use date assessed: 06/02/21 HPI HPI Comments History of Present Illness Details This is a 57-year-old female with hypertension, pure hypercholesterolemia, B12 deficiency on low vitamin-D that complains of conjunctival redness, tearing and right eye pain that started about 2 weeks ago only with redness and progress to pain and tearing. She did went to ER 10/30/2023 due to this matter and had right eye pressure measurement of 15. She has right blurry vision and her arcus senilis is more pronounced than on the left eye. Also the right eye is slightly deviated outwards and has right droopy eyelid. She said that the lower eyelid is painful. No foreign object found or previous trauma. Blood pressure elevated because she has not take her medications yet. Blood pressure will be recheck in 3 weeks by nurse navigator. Lipid panel, vitamin B12 and vitamin-D levels will be order. No chest pain or shortness of breath. [facility] Medical History (Updated 11/06/23 @ 09:50 by Kinjal Esposito MD) Hypovitaminosis D Postmenopausal Pure hypercholesterolemia Physical exam B12 deficiency Essential hypertension Surgical History History of shoulder surgery History of lipoma History of section History of cholecystectomy Family History Father Lung cancer Mother Stroke Maternal Grandmother Stroke CVD (cardiovascular disease) Maternal Grandfather CVD (cardiovascular disease) Stroke Maternal Uncle Myocardial infarction Social History Housing: Apartment Alcohol intake: never Patient Tobacco Use Status: Never used Tobacco e-Cigarette/Vaping Use: Never Used Second Hand Smoke Exposure: No service: No Current occupational status: employed 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 Alejandro Thomas, Jami Moreno, Nikko Lucero and colleagues, with an educational zacarias from [employer]. Review of Systems Const All systems reviewed & are unremarkable except as noted in HPI and below Eyes Reports blurry vision, Reports irritation, Reports eye pain and Reports photophobia ENT Denies change in voice, Denies nasal discharge and Denies sinus pain Card Denies chest pain at rest, Denies chest pain with activity, Denies edema, Denies irregular heart rhythm, Denies claudication, Denies dyspnea, Denies dyspnea on exertion, Denies orthopnea, Denies paroxysmal nocturnal dyspnea and Denies slow heart rate Resp Denies cough, Denies dyspnea and Denies dyspnea on exertion Physical exam (Primary Care) Tobacco/Smoking Status: Tobacco use Status Tobacco use date assessed 06/02/21 11/06/23 09:37 Patient Tobacco Use Status Never used Tobacco 11/06/23 09:37 Tobacco use type 10/28/21 09:24 e-Cigarette/Vaping Use Never Used 11/06/23 09:37 Thrive Assessment: Date of Thrive Assessment Date Thrive assessed 06/02/21 11/06/23 09:37 Const General: cooperative Eyes Alignment and Position: alignment abnormal right Eyelids: Yes eyelid abnormality Conjunctivae: conjunctival abnormal right conjunctival injection Direct Ophthalmoscopy: photophobia Resp Effort & Inspection: normal respiratory effort Auscultation: clear to auscultation bilaterally Cardio Jugular venous distension: no JVD Rate: regular rate Rhythm: regular rhythm Heart sounds: S1 normal heart sound present and S2 normal heart sound present Extrem General: Yes full ROM Assessment and Plan Assessment & Plan (1) Eye pain: Code(s): H57.10 - Ocular pain, unspecified eye Plan: Referred urgently to ophthalmology. (2) Pure hypercholesterolemia: Code(s): E78.00 - Pure hypercholesterolemia, unspecified Plan: Continue statins. Repeat lipid panel. (3) Essential hypertension: Code(s): I10 - Essential (primary) hypertension Plan: Continue amlodipine and lisinopril-hydrochlorothiazide. Blood pressure goal is equal or less than 130/80. Recheck blood pressure with nurse navigator in 3 weeks. (4) B12 deficiency: Code(s): E53.8 - Deficiency of other specified B group vitamins Plan: Continue vitamin B12 supplements. Repeat vitamin B12 levels. (5) Hypovitaminosis D: Code(s): E55.9 - Vitamin D deficiency, unspecified Plan: Continue vitamin-D supplements. Repeat vitamin-D levels. Orders: Orders Vitamin B12 and Folate Today E53.8 - Deficiency of other specified B group vitamins Comprehensive [place]. Panel Fast Today E78.00 - Pure hypercholesterolemia, unspecified Vitamin D 25-OH Total Today E55.9 - Vitamin D deficiency, unspecified Lipid Panel Today E78.5 - Hyperlipidemia, unspecified Complete Blood Count Auto Diff Today D64.9 - Anemia, unspecified, E53.8 - Deficiency of other specified B group vitamins Referrals Ophthalmology Referral H57.10 - Ocular pain, unspecified eye Medications: Changed From lisinopril-hydrochlorothiazide 10-12.5 mg 1 tab PO DAILY To lisinopril-hydrochlorothiazide 10-12.5 mg 1 tab PO DAILY 90 days 90 tabs 1RF Refilled cyanocobalamin (vitamin B-12) 1,000 mcg PO DAILY 30 tabs 6RF E53.8 - Deficiency of other specified B group vitamins cholecalciferol (vitamin D3) 50 mcg PO DAILY 90 days 90 caps 1RF E55.9 - Vitamin D deficiency, unspecified amlodipine 5 mg PO DAILY 90 tabs 3RF E53.8 - Deficiency of other specified B group vitamins atorvastatin 20 mg PO BEDTIME 90 days 90 tabs 0RF E78.00 - Pure hypercholesterolemia, unspecified Discontinued silver sulfadiazine 1% apply a 1.5 mm thickness Discontinued Reason: No Longer Medically Relevant 1 appl topical DAILY PRN 400 grams 0RF walker prednisone Discontinued Reason: No Longer Medically Relevant 40 mg (2 x 20 mg) PO DAILY 5 days 10 tabs 0RF Coding Level of Care Code Est Pt Level 4 (65203) Diagnoses Eye pain H57.10 Pure hypercholesterolemia E78.00 Essential hypertension I10 B12 deficiency E53.8 Hypovitaminosis D E55.9 Time Spent (min) 20
== END 2023-11-06 09:57 | disposition home or self-care (01) ==
PROVIDERS: PCP Internal Medicine; Visit Provider Internal Medicine
DX: H57.10 Ocular pain, unspecified eye (principal); E78.00 Pure hypercholesterolemia, unspecified; I10 Essential (primary) hypertension; E53.8 Deficiency of other specified B group vitamins; E55.9 Vitamin D deficiency, unspecified
CPT/HCPCS: 99214

== ENCOUNTER 2024-03-19 09:29 | Outpatient (REF) | payer OTHER, SELFPAY ==
[2024-03-19 11:28] LABS: MANUAL DIFF FLAG NO
[2024-03-19 11:34] LABS: Basophils Absolute Auto 0.1 X10*3/uL (0.0-0.2); Eosinophils Absolute Auto 0.3 X10*3/uL (0.0-0.4); Eosinophils Percent Auto 3.5 % (0-4); Hematocrit 40.9 % (37.0-47.0); Hemoglobin 13.4 g/dl (12.0-16.0); Imm Gran Abs Auto 0.05 X10*3/uL (0.00-0.03); Imm Gran Pct Auto 0.6 % (0.0-0.4); Lymphocytes Absolute Auto 3.1 X10*3/uL (1.2-4.9); Lymphocytes Percent Auto 38.5 % (20-40); Mean Corpuscular HGB Conc 32.8 g/dl (31.0-35.0); Mean Corpuscular Hemoglobin 28.9 pg (27.0-33.0); Mean Corpuscular Volume 88.3 fL (80.0-98.0); Mean Platelet Volume 11.3 fL (9.4-12.3); Monocytes Absolute Auto 0.6 X10*3/uL (0.1-1.2); Monocytes Percent Auto 7.8 % (2-11); Neutrophils Absolute Auto 3.9 x10*3/uL (2.0-8.3); Neutrophils Percent Auto 48.6 % (45-73); Platelet Count 343 X10*3/uL (160-400); Red Blood Count 4.63 X10*6/uL (4.20-5.50); Red Cell Distribution Width 13.2 % (11.0-16.0)
[2024-03-19 12:08] LABS: Alanine Aminotransferase 21 U/L (0-31); Alkaline Phosphatase 76 U/L (39-117); Anion Gap 13 (12-20); Aspartate Amino Transferase 24 U/L (5-31); Bilirubin Total 0.3 mg/dL (0.0-1.0); Blood Urea Nitrogen 14 mg/dL (9-16); Calcium 9.5 mg/dL (8.4-10.2); Carbon Dioxide 24 mmol/L (22-29); Chloride 107 mmol/L (96-108); Cholesterol 221 mg/dL (<200); Estimated Glomerular Filt Rate > 60; Glucose Fasting 88 mg/dL (60-99); HDL Cholesterol 37 mg/dL (>40); LDL Cholesterol Calculated 146 mg/dL (<100); Potassium 3.8 mmol/L (3.3-5.1); Sodium 140 mmol/L (135-145); Total Protein 7.5 g/dL (6.5-8.0); Triglycerides 191 mg/dL (<150)
[2024-03-19 12:09] LABS: Vitamin D 25-OH Total 63.9 ng/mL (>30)
[2024-03-19 12:21] LABS: Folate 10.4 ng/mL (> or = 4.0); Vitamin B12 218 pg/mL (200-900)
== END 2024-03-19 09:30 | disposition home or self-care (01) ==
LOC: HO.HHCL 09:29
PROVIDERS: Visit Provider Internal Medicine
DX: E78.00 Pure hypercholesterolemia, unspecified (principal); E53.8 Deficiency of other specified B group vitamins; E78.5 Hyperlipidemia, unspecified; D64.9 Anemia, unspecified; E55.9 Vitamin D deficiency, unspecified
CPT/HCPCS: 36415; 80053; 80061; 82306; 82607; 82746; 85025

== ENCOUNTER 2024-03-26 10:51 | Outpatient (AMB) | payer OTHER, SELFPAY ==
--- NOTE | 2024-03-26 11:06 | MHC.PC.OV ---
Vital Signs 03/26/24 11:07 03/26/24 12:00 Height 5 ft 1 in Weight 146 lb BMI 27.6 BP 150/88 H 150/90 H Blood Pressure Location Lt brachial Lt brachial Position Sitting Sitting Intake Visit Reasons: Annual exam Intake Note: Patient here for a physical exam Beveler Required: No Accompanied by: Self / Same As Patient Allergies No Known Allergies Allergy (Verified 03/26/24 11:32) Medication List - Last Reconciled 03/26/24 by Kinjal Esposito MD acetaminophen (Tylenol Extra Strength) 500 mg PO Q6H PRN amlodipine 5 mg PO DAILY atorvastatin 20 mg PO BEDTIME 90 days cetirizine 10 mg PO DAILY cholecalciferol (vitamin D3) 50 mcg PO DAILY 90 days cyanocobalamin (vitamin B-12) 1,000 mcg PO DAILY ibuprofen 800 mg PO Q8H PRN ibuprofen 600 mg PO Q6H PRN lisinopril-hydrochlorothiazide 10-12.5 mg 1 tab PO DAILY 90 days lorazepam (Ativan) 0.5 mg PO BEDTIME PRN valacyclovir (Valtrex) 1,000 mg PO TID 10 days Tobacco use date assessed: 03/26/24 Dental Screening Dental Screen Date: 03/26/24 Did you have a dental visit in the last 12 months?: Yes Did you have a dental problem in the last 6 months where you did not have access to dental care?: No Was dental information given to patient?: Patient has dentist HPI HPI Comments History of Present Illness Details This is a 58-year-old female that comes for her physical exam. Last mammogram and DEXA scan was done 2021 and I will reorder them. Last Pap smear was 2018 and will be referred to OBGYN for this matter. As per patient had test for occult blood to screening for colon cancer few years ago and was negative. I will order Cologuard for her. No chest pain or shortness on breath. Blood pressure elevated and I will increase medication. Blood pressure will be recheck in 3 weeks by nurse navigator. [facility] Medical History (Updated 03/26/24 @ 11:55 by Kinjal Esposito MD) Hypovitaminosis D Postmenopausal Pure hypercholesterolemia Physical exam B12 deficiency Essential hypertension Surgical History History of shoulder surgery History of lipoma History of section History of cholecystectomy Family History Father Lung cancer Mother Stroke Maternal Grandmother Stroke CVD (cardiovascular disease) Maternal Grandfather CVD (cardiovascular disease) Stroke Maternal Uncle Myocardial infarction Social History Housing: Apartment Alcohol intake: never Patient Tobacco Use Status: Never used Tobacco e-Cigarette/Vaping Use: Never Used Second Hand Smoke Exposure: No service: No Current occupational status: employed 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 1. Little interest or pleasure in doing things: not at all 2. Feeling down, depressed, or hopeless: not at all 3. Trouble falling or staying asleep, or sleeping too much: not at all 4. Feeling tired or having little energy: not at all 5. Poor appetite or overeating: not at all 6. Feeling bad about yourself - or that you are a failure or have let yourself or your family down: not at all 7. Trouble concentrating on things, such as reading the newspaper or watching television: not at all 8. Moving or speaking so slowly that other people could have noticed. Or the opposite - being so fidgety or restless that you have been moving around a lot more than usual: not at all 9. Thoughts that you would be better off or of hurting yourself in some way: not at all Total score: 0 Depression Screening Interpretation: Negative Depression Screening Done: Yes 40974 - PHQ-9 Billing: Yes Source: Developed by Drs. Alejandro Thomas, Jami Moreno, Nikko Lucero and colleagues, with an educational zacarias from [employer]. Thrive Questionnaire Date Thrive assessed: 03/26/24 I am a: Patient What is your living situation today?: I have a steady place to live Within the past 12 months, did the food you bought not last and you didn't have the money to get more?: Never true Within the past 12 months, did you worry whether your food would run out before you got money to buy more?: Never true Do you have trouble paying for medicines?: No Do you have trouble getting transportation to medical appointments?: No Do you have trouble paying your heating and electricity bill?: No Do you have trouble taking care of your child, family member or friend?: No Do you have trouble with day-to-day activities such as bathing, preparing meals, shopping, managing finances, etc.?: No Are you currently unemployed and looking for a job?: No Are you interested in more education?: No Please select the resources that you would like help with: None Currently or been in a relationship where the following occur: No concerns reported THRIVE Score: 0 AUDIT C Alcohol Use Questionnaire (AUDIT-C) 1. How often do you have a drink containing alcohol?: Never Total Score: 0 Score Reviewed/Action Taken: No IDANIA-7 AMB Questionnaire IDANIA-7 Date IDANIA - 7 assessed: 03/26/24 Feeling nervous, anxious, or on edge: 0 = Not at all Not being able to stop or control worryin = Not at all Worrying too much about different things: 0 = Not at all Trouble relaxin = Not at all Being so restless that it is hard to sit still: 0 = Not at all Becoming easily annoyed or irritable: 0 = Not at all Feeling afraid as if something awful might happen: 0 = Not at all Total IDANIA-7 score (0-4 normal; 5-9 mild; 10-14 moderate; 15-21 severe): 0 Source: Developed by Drs. Alejandro Thomas, Jami Moreno, Nikko Lucero and colleagues, with an educational zacarias from [employer]. IDANIA-7 Assessment Billing IDANIA-7 Assessment Tool: IDANIA-7 Assessment 46448 Review of Systems Const All systems reviewed & are unremarkable except as noted in HPI and below Card Denies chest pain at rest, Denies chest pain with activity, Denies edema, Denies irregular heart rhythm, Denies claudication, Denies dyspnea, Denies dyspnea on exertion, Denies orthopnea, Denies paroxysmal nocturnal dyspnea and Denies slow heart rate Resp Denies cough, Denies dyspnea and Denies dyspnea on exertion GI Denies abdominal pain, Denies change in bowel habits, Denies excessive flatus, Denies nausea and Denies vomiting Denies urinary incontinence, Denies urinary hesitancy and Denies urinary urgency Musc Denies atrophy, Denies deformity and Denies limited range of motion Physical exam (Primary Care) Vital Signs: Last Vital Signs BP 150/88 H 03/26/24 11:07 BMI result Body Mass Index 27.6 Tobacco/Smoking Status: Tobacco use Status Tobacco use date assessed 03/26/24 03/26/24 11:12 Patient Tobacco Use Status Never used Tobacco 03/26/24 11:12 Tobacco use type 10/28/21 09:24 e-Cigarette/Vaping Use Never Used 03/26/24 11:12 PHQ-9: PHQ-9 Score PHQ-9: Total score 0 03/26/24 11:12 Depression Screening Interpretation: Negative Thrive Assessment: Date of Thrive Assessment Date Thrive assessed 03/26/24 03/26/24 11:18 Currently or been in a relationship where the following occur: No concerns reported HENMT Head: Yes normal to inspection, Yes normocephalic and Yes atraumatic Ears: external ears normal Eyes General: appearance normal, both eyes and all related structures Eyelids: Yes eyelids normal Conjunctivae: conjunctivae normal Neck Neck: Yes normal visual inspection and Yes supple Resp Effort & Inspection: normal respiratory effort Auscultation: clear to auscultation bilaterally Cardio Jugular venous distension: no JVD Rate: regular rate Rhythm: regular rhythm Heart sounds: S1 normal heart sound present and S2 normal heart sound present GI Inspection: Yes normal to inspection Palpation (GI): Soft to palpation and nontender Auscultation: normal bowel sounds Skin General skin exam: no rashes or lesions noted Neuro General: no focal motor deficits Extrem General: Yes full ROM Psych Appearance: grossly normal Assessment and Plan Assessment & Plan (1) Physical exam: Code(s): Z00.00 - Encounter for general adult medical examination without abnormal findings Plan: Repeat in a year. Orders: Orders XR DEXA axial skeleton Today N95.9 - Unspecified menopausal and perimenopausal disorder MM screening mammo BI Today Z12.31 - Encounter for screening mammogram for malignant neoplasm of breast Referrals Cologuard Test Z12.11 - Encounter for screening for malignant neoplasm of colon, Z12.12 - Encounter for screening for malignant neoplasm of rectum PROFESSOR OF JOURNALISM Referral Z12.4 - Encounter for screening for malignant neoplasm of cervix Medications: New lisinopril-hydrochlorothiazide 20-12.5 mg 1 tab PO DAILY 90 days 90 tabs 1RF atorvastatin 40 mg PO BEDTIME 90 days 90 tabs 1RF Refilled amlodipine 5 mg PO DAILY 90 tabs 3RF E53.8 - Deficiency of other specified B group vitamins Discontinued lorazepam (Ativan) Discontinued Reason: Patient Completed Course 0.5 mg PO BEDTIME PRN 14 tabs 0RF anxiety atorvastatin Discontinued Reason: Patient Completed Course 20 mg PO BEDTIME 90 days 90 tabs 0RF E78.00 - Pure hypercholesterolemia, unspecified lisinopril-hydrochlorothiazide 10-12.5 mg Discontinued Reason: Patient Completed Course 1 tab PO DAILY 90 days 90 tabs 1RF Coding Level of Care Code Est Pt Prev Care 40-64y(74593) Diagnoses Physical exam Z00.00 Additional Codes IDANIA-7 Assessment Billing - IDANIA-7 Assessment Tool: IDANIA-7 Assessment 76284 ([id number]) Time Spent (min) 31
[2024-03-26 11:07] VITALS: BP 150/88; BMI 27.6
[2024-03-26 12:00] VITALS: BP 150/90
== END 2024-03-26 11:47 | disposition home or self-care (01) ==
PROVIDERS: PCP Internal Medicine; Visit Provider Internal Medicine
DX: Z00.00 Encounter for general adult medical examination without abnormal findings (principal)
CPT/HCPCS: 99396

== ENCOUNTER 2024-08-13 13:15 | Outpatient (REF) | payer OTHER, SELFPAY ==
--- NOTE | ~2024-08-13 | MM_ITS ---
EXAMINATION: DXA BONE DENSITY AXIAL HISTORY: Estrogen deficiency TECHNIQUE: [employer] Dual energy absorptiometry (DEXA) of the lumbar spine, total left hip, and femoral neck was performed. COMPARISON: Comparison is made with the prior examination dated 12/23/2021. FINDINGS: The bone mineral density of the lumbar spine is 1.116 with a T-score of -0.5, and a Z-score of 0.7. This represents a BMD change of -1.2% compared to the prior exam. This is not statistically significant. The bone mineral density of the left total hip is 1.015 with a T-score of 0.1, and a Z-score of 1.0. This represents BMD change of -0.5% compared to the prior exam. This is not statistically significant. The bone mineral density of the left femoral neck is 0.834 with a T-score of -1.5, and a Z-score of -0.2. This represents BMD change of 3.5% compared to the prior exam. FRACTURE RISK: The FRAX index suggests a ten year probability of major osteoporotic fracture of 4.4%, and of hip fracture 0.4%. MM/XR DEXA axial skeleton IMPRESSION: Based on bone mineral density, and according to World Health Organization (WHO) criteria, the diagnosis is consistent with osteopenia. All bone density values are in grams per centimeter squared (g/cm2). Statistically, 68% of repeat scans fall within 1 SD (+/- 0.010 g/cm2 for AP spine L1-L4) and 1 SD (+/- 0.012 g/cm2 for femur total) FRAX is a trademark of the [employer]'s [facility] Metabolic [employer] Disease, a World Health Organization (WHO) Collaborating Center. Electronically signed by: Alejandro Ocasio MD 08/13/2024 03:06 PM [facility]
--- NOTE | ~2024-08-13 | MM_ITS ---
EXAMINATION: MM SCREENING DIGITAL BREAST TOMOSYNTHESIS, BILATERAL CLINICAL INFORMATION: Screening. Asymptomatic. COMPARISON: Mammography: Comparison is made with available priors TECHNIQUE: Digital breast mammography with tomosynthesis is performed in both the craniocaudal and mediolateral oblique views along with computer-aided detection (CAD). FINDINGS: There are scattered areas of fibroglandular density (ACR BI-RADS breast composition Category b). There are no significant masses, abnormal calcifications, or other abnormalities. MM/MM tomosynthesis screening BI IMPRESSION: No mammographic evidence of malignancy. ASSESSMENT: BI-RADS BI-RADS 1 - Negative RECOMMENDATION: Routine annual mammography screening. 1 year F/U This examination should not preclude the clinical evaluation of a suspicious palpable abnormality. This patient's information was entered into a reminder system with a target due date for their next mammogram. Electronically signed by: Daisy Fuentes DO 08/22/2024 08:22 AM [facility] [place]
== END 2024-08-13 13:16 | disposition home or self-care (01) ==
LOC: HO.MAMMO 13:15
PROVIDERS: PCP Internal Medicine; Visit Provider Internal Medicine
DX: N95.9 Unspecified menopausal and perimenopausal disorder (principal); M85.80 Other specified disorders of bone density and structure, unspecified site
CPT/HCPCS: 77063; 77067; 77080

== ENCOUNTER → 2024-08-13 13:25 | Outpatient (BNV) | payer OTHER, SELFPAY | PROVIDERS: PCP Internal Medicine; Visit Provider Radiology Diagnostic Radiology | DX: Z12.31 Encounter for screening mammogram for malignant neoplasm of breast (principal) | CPT/HCPCS: 77063; 77067 ==

== ENCOUNTER 2024-08-22 08:36 | Emergency (ER) | payer OTHER, SELFPAY ==
--- NOTE | ~2024-08-22 | XR_ITS ---
EXAMINATION: XR SHOULDER, LEFT CLINICAL INFORMATION: pain COMPARISON: 08/07/2019. TECHNIQUE: Three views of the left shoulder. FINDINGS: No fracture, dislocation, or suspicious bone lesion. Normal alignment. Minimal arthritis in the glenohumeral joint and minimal spurring of the AC joint. Preservation of the subacromial space. Mildly downsloping lateral acromion without spurring. Remainder the bony and soft tissue structures appear normal. XR/XR shoulder LT min 2V IMPRESSION: No acute findings left shoulder. Minimal degenerative arthritis glenohumeral joint and AC joint. Electronically signed by: Keegan Ott MD 08/22/2024 09:34 [facility]
[2024-08-22 08:38] VITALS: BP 168/83; PULSE 62; RESP 20; TEMP 36.4; O2SAT 100; BMI 27.1
--- NOTE | 2024-08-22 10:41 | ED_ITS ---
HPI - Extremity Problem General Chief complaint: Extremity Injury, Upper Stated complaint: pain l shoulder Time Seen by Provider: 08/22/24 10:39 Related Data Home Medications ?Medication ?Instructions ?Recorded ?Confirmed cetirizine 10 mg tablet 10 mg PO DAILY 07/29/20 03/26/24 Previous Rx's ?Medication ?Instructions ?Recorded ibuprofen 800 mg tablet 800 mg PO Q8H PRN pain #14 tabs 06/23/21 acetaminophen 500 mg tablet 500 mg PO Q6H PRN fever or pain 07/25/23 (Tylenol Extra Strength) #30 tabs ibuprofen 600 mg tablet 600 mg PO Q6H PRN fever or pain 07/25/23 #30 tabs valacyclovir 1 gram tablet 1,000 mg PO TID 10 days #30 tabs 07/25/23 (Valtrex) cholecalciferol (vitamin D3) 50 50 mcg PO DAILY 90 days #90 caps 11/06/23 mcg (2,000 unit) capsule cyanocobalamin (vitamin B-12) 1,000 mcg PO DAILY #30 tabs 11/06/23 1,000 mcg tablet amlodipine 5 mg tablet 5 mg PO DAILY #90 tabs 03/26/24 atorvastatin 40 mg tablet 40 mg PO BEDTIME 90 days #90 tabs 03/26/24 lisinopril 20 1 tab PO DAILY 90 days #90 tabs 03/26/24 mg-hydrochlorothiazide 12.5 mg tablet Allergies Allergy/AdvReac Type Severity Reaction Status Date / Time No Known Allergies Allergy Verified 08/22/24 08:40 [facility] Past Medical History Medical History Hypovitaminosis D Postmenopausal Pure hypercholesterolemia Physical exam B12 deficiency Essential hypertension Surgical History History of shoulder surgery History of lipoma History of section History of cholecystectomy Family History Family History Father Lung cancer Mother Stroke Maternal Grandmother Stroke CVD (cardiovascular disease) Maternal Grandfather CVD (cardiovascular disease) Stroke Maternal Uncle Myocardial infarction Social History Social History Housing: Apartment Alcohol intake: never Patient Tobacco Use Status: Never used Tobacco e-Cigarette/Vaping Use: Never Used Second Hand Smoke Exposure: No service: No Current occupational status: employed 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 Current occupational exposures/hazards: No Cognitive needs: No Hearing needs: No Vision needs: No Physical Exam Vital Signs: Vital Signs: Last Vital Signs Temp 97.5 F 08/22/24 08:38 Pulse 62 08/22/24 08:38 Resp 20 08/22/24 08:38 BP 168/83 H 08/22/24 08:38 Pulse Ox 100 08/22/24 08:38 O2 Del Method Room Air 08/22/24 08:38 BMI result Body Mass Index 27.1 Discharge Plan Discharge Prescriptions: No Action ibuprofen 800 mg tablet 800 mg PO Q8H PRN (Reason: pain) Qty: 14 0RF valacyclovir [Valtrex] 1 gram tablet 1,000 mg PO TID 10 Days Qty: 30 0RF ibuprofen 600 mg tablet 600 mg PO Q6H PRN (Reason: fever or pain) Qty: 30 0RF acetaminophen [Tylenol Extra Strength] 500 mg tablet 500 mg PO Q6H PRN (Reason: fever or pain) Qty: 30 0RF cetirizine 10 mg tablet 10 mg PO DAILY lisinopril-hydrochlorothiazide 20-12.5 mg tablet 1 tab PO DAILY 90 Days Qty: 90 1RF amlodipine 5 mg tablet 5 mg PO DAILY Qty: 90 3RF atorvastatin 40 mg tablet 40 mg PO BEDTIME 90 Days Qty: 90 1RF cyanocobalamin (vitamin B-12) 1,000 mcg tablet 1,000 mcg PO DAILY Qty: 30 6RF cholecalciferol (vitamin D3) 50 mcg (2,000 unit) capsule 50 mcg PO DAILY 90 Days Qty: 90 1RF Print Language: Sinhala
--- NOTE | 2024-08-22 10:53 | MHC.EDTECH ---
Called patient from waiting room, no answer.
--- NOTE | 2024-08-22 11:10 | MHC.EDTECH ---
Called patient again from waiting room, no answer.
== END 2024-08-22 11:41 | disposition left against medical advice (07) ==
PROVIDERS: Emergency Provider Emergency Medicine; PCP Internal Medicine
DX: M25.512 Pain in left shoulder (principal); Z53.21 Procedure and treatment not carried out due to patient leaving prior to being seen by health care provider
CPT/HCPCS: 73030; 99281

== ENCOUNTER → 2024-08-22 09:10 | Outpatient (BNV) | payer OTHER, SELFPAY | PROVIDERS: PCP Internal Medicine; Visit Provider Radiology Diagnostic Radiology | DX: R52 Pain, unspecified (principal) | CPT/HCPCS: 73030 ==

== ENCOUNTER 2024-08-25 17:09 | Emergency (ER) | payer OTHER, SELFPAY ==
[2024-08-25 17:17] VITALS: BP 169/93; PULSE 92; O2SAT 100
[2024-08-25 17:19] VITALS: BP 164/75; PULSE 88; RESP 20; TEMP 36.9; O2SAT 100; BMI 29.3
[2024-08-25] MEDS: LORazepam 1 MG TABLET PO (17:30)
--- NOTE | 2024-08-25 17:37 | ED_ITS ---
HPI - General Adult General Chief complaint: Seizure Stated complaint: ?behavioral, received bad news of in fam Time Seen by Provider: 08/25/24 17:18 Source: patient and EMS Mode of arrival: EMS Limitations: altered mental status History of Present Illness ED Provider: Vanda Adrian NP HPI narrative: Patient is a 58-year-old female who presents emergency department via EMS for ev aluation. Patient comes from home where she was surrounded by family. Evidently she was made aware this evening that her brother had , she suddenly began flailing her arms around and screaming, family thought that she may be having a seizure so they contacted 911. She has no known seizure history. On arrival she is tearful yelling out, making minimal conversation. Initially answering some yes no questions to nursing staff, does not converse with myself despite having official court interpreter at bedside. Related Data Home Medications ?Medication ?Instructions ?Recorded ?Confirmed cetirizine 10 mg tablet 10 mg PO DAILY 07/29/20 03/26/24 Previous Rx's ?Medication ?Instructions ?Recorded ibuprofen 800 mg tablet 800 mg PO Q8H PRN pain #14 tabs 06/23/21 acetaminophen 500 mg tablet 500 mg PO Q6H PRN fever or pain 07/25/23 (Tylenol Extra Strength) #30 tabs ibuprofen 600 mg tablet 600 mg PO Q6H PRN fever or pain 07/25/23 #30 tabs valacyclovir 1 gram tablet 1,000 mg PO TID 10 days #30 tabs 07/25/23 (Valtrex) cholecalciferol (vitamin D3) 50 50 mcg PO DAILY 90 days #90 caps 11/06/23 mcg (2,000 unit) capsule cyanocobalamin (vitamin B-12) 1,000 mcg PO DAILY #30 tabs 11/06/23 1,000 mcg tablet amlodipine 5 mg tablet 5 mg PO DAILY #90 tabs 03/26/24 atorvastatin 40 mg tablet 40 mg PO BEDTIME 90 days #90 tabs 03/26/24 lisinopril 20 1 tab PO DAILY 90 days #90 tabs 03/26/24 mg-hydrochlorothiazide 12.5 mg tablet Allergies Allergy/AdvReac Type Severity Reaction Status Date / Time No Known Allergies Allergy Verified 08/25/24 17:27 Review of Systems Review of Systems: Yes all other systems are reviewed and are negative PMFSH Past Medical History Attestation statement: The following information was validated with the patient. Source: old records reviewed Medical History Hypovitaminosis D Postmenopausal Pure hypercholesterolemia Physical exam B12 deficiency Essential hypertension Surgical History History of shoulder surgery History of lipoma History of section History of cholecystectomy Family History Family History Father Lung cancer Mother Stroke Maternal Grandmother Stroke CVD (cardiovascular disease) Maternal Grandfather CVD (cardiovascular disease) Stroke Maternal Uncle Myocardial infarction Social History Social History Housing: Apartment Alcohol intake: never Patient Tobacco Use Status: Never used Tobacco e-Cigarette/Vaping Use: Never Used Second Hand Smoke Exposure: No Advance Directives: No Advance Directives Information Provided: No service: No Current occupational status: employed 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 Anxious, tearful, yelling out Eyes: Pupils equal, round and reactive to light.? ENT: Pharynx normal.?? Neck: Normal inspection.? Neck supple.?? CVS: Heart sounds normal. Normal heart rate and rhythm.? Pulses normal.?? Respiratory: No respiratory distress.? Lung sounds clear to auscultation bilaterally?? Abdomen: Soft and non-tender. Normoactive bowel sounds. ? Skin: Skin warm and dry.? Normal skin color.? Extremities: No lower extremity edema.? Neuro: Moves all extremities spontaneously. No focal neuro deficits. Ambulates with normal steady gait. Course Reevaluation(s) Reevaluation #1: family at bedside, patient A&Ox3. speaking cleasr full sentences, she is sad and grieving to be expected. Denies SI. No HI, hallucinations, no interest in speaking with CARE Team, reqquesting discharge home with family which is resonable. Again I do not believe this was a seizure, there was no LOC, tongue biting, incontinence, or uncontrollable convulsing. History favors grief response. discussed reasons to return back to the emergency department, all questions answered Medications Administered Discontinued Medications Generic Name Dose Route Start Last Admin Trade Name Freq PRN Reason Stop Dose Admin Lorazepam 1 mg 08/25/24 17:26 08/25/24 17:30 Lorazepam 1 Mg Tablet PO 08/25/24 17:27 1 mg ONCE ONE Administration Medical Decision Making Medical Decision Making MDM Narrative: Patient is a 58-year-old female past medical history of hypertension, hypercholesterolemia presenting to emergency department via EMS for evaluation of abrupt onset flailing of her arms and screaming out, family expressed concern for seizure activity though she has no documented seizure history and family denied any known seizure history, I suspect that this was likely a grief reaction in the setting of finding out that her brother had just . She is anxious in appearance, yelling out and tearful. She is minimally conversive, initially answering some yes no questions before she begins to hysterically cry. Feel that she would benefit from lorazepam at this time which she was amenable to taking orally. Differential Diagnosis Differential Diagnoses: The differential diagnosis associated with the presentation includes (Anxiety, grief reaction, depression) Independent Historian Clinical information obtained from an independent historian. History obtained from or confirmed by: EMS External Record Review External record reviewed: Outpatient record Chronic Conditions Patient?s care impacted by: Other (See narrative above) Discharge Plan Discharge Clinical Impression: Grief reaction Patient Disposition: Home, Self-Care Instructions: Grief and Loss (ED) Additional Instructions: We are very sorry for the loss of your family member. Please follow-up with your primary care doctor as needed. You may return to emergency department any new or worsening symptoms or concerns Prescriptions: No Action ibuprofen 800 mg tablet 800 mg PO Q8H PRN (Reason: pain) Qty: 14 0RF valacyclovir [Valtrex] 1 gram tablet 1,000 mg PO TID 10 Days Qty: 30 0RF ibuprofen 600 mg tablet 600 mg PO Q6H PRN (Reason: fever or pain) Qty: 30 0RF acetaminophen [Tylenol Extra Strength] 500 mg tablet 500 mg PO Q6H PRN (Reason: fever or pain) Qty: 30 0RF cetirizine 10 mg tablet 10 mg PO DAILY lisinopril-hydrochlorothiazide 20-12.5 mg tablet 1 tab PO DAILY 90 Days Qty: 90 1RF amlodipine 5 mg tablet 5 mg PO DAILY Qty: 90 3RF atorvastatin 40 mg tablet 40 mg PO BEDTIME 90 Days Qty: 90 1RF cyanocobalamin (vitamin B-12) 1,000 mcg tablet 1,000 mcg PO DAILY Qty: 30 6RF cholecalciferol (vitamin D3) 50 mcg (2,000 unit) capsule 50 mcg PO DAILY 90 Days Qty: 90 1RF Referrals: Physician,Unknown J [Primary Care Provider] - Interventions: ED Discharge Assessment Last Done: 08/25/24 21:25 Discharge Date/Time: 08/25/24 21:19 Print Language: Divehi
[2024-08-25 21:07] VITALS: BP 141/80; PULSE 78; RESP 19; TEMP 36.8; O2SAT 99
[2024-08-25 21:13] VITALS: BP 141/80; PULSE 78; RESP 19; TEMP 36.8; O2SAT 99
--- NOTE | 2024-08-25 21:24 | PC.NURSE ---
no s/s seizures. family at bedside. calm/cooperative. respirations non labored. gait steady. under severe stress due to brother passing away. endorsing no physical pain.
[2024-08-25 21:25] VITALS: BP 141/80; PULSE 78; RESP 19; TEMP 36.8; O2SAT 99
== END 2024-08-25 21:19 | disposition home or self-care (01) ==
PROVIDERS: Emergency Provider Emergency Medicine
DX: R56.9 Unspecified convulsions (principal); F43.20 Adjustment disorder, unspecified; Z79.899 Other long term (current) drug therapy
CPT/HCPCS: 99284